=== PATIENT | male | born 1960 | race Caucasian/White ===

== ENCOUNTER 2019-06-29 15:20 | Outpatient (CLI) | payer MEDICARE, SELFPAY ==
--- NOTE | 2019-06-29 15:31 | CT_ITS ---
WS: [id number] CT NECK WITHOUT CONTRAST. HISTORY: MASS OF LEFT SIDE OF NECK TECHNIQUE: Contiguous 5 mm axial images are performed through the neck without intravenous contrast. Sagittal and coronal reformats are also submitted. All CT scans at [facility] use at leas t one of these dose optimization techniques: automated exposure control; mA and/or kV adjustment per patient size (includes targeted exams where dose is matched to clinical indication); or iterative rec onstruction. CONTRAST: CONTRAST: None DLP: 2954.0 mGycm COMPARISON: None available. Nasopharynx, oropharynx, hypopharynx and larynx are unremarkable. No soft tissue masses or abnormal e nhancement. Torus tubarius and fossa of Rosenmuller and parapharyngeal fat are normal. Small bilateral cervical chain lymph nodes. No adenopathy. Thyroid gland and salivary glands are normally enhancing with no masses. No osseous abnormalities. Visualized portions of the skull base demonstrate no abnormalities. Orbits and globes are within norm al limits. No soft tissue masses. Partially calcified extracranial carotid arteries. Partial calcific ation of the aortic arch. Visualized paranasal sinuses and mastoid air cells are normal. Lung apices are clear. CT/CT neck wo con [id number] IMPRESSION: 1. No neck mass or adenopathy. 2. Mild atherosclerosis aortic arch and carotid arteries.
== END 2019-06-29 15:21 | disposition home or self-care (01) ==
PROVIDERS: Family Provider Family Medicine; PCP Family Medicine; Visit Provider Family Medicine
DX: I70.0 Atherosclerosis of aorta (principal); I65.23 Occlusion and stenosis of bilateral carotid arteries; R22.1 Localized swelling, mass and lump, neck
CPT/HCPCS: 70490

== ENCOUNTER → 2019-07-12 10:04 | Outpatient (BNVA) | payer MEDICARE, SELFPAY | PROVIDERS: Family Provider Family Medicine; PCP Family Medicine; Visit Provider Family Medicine | DX: I10 Essential (primary) hypertension (principal); E78.5 Hyperlipidemia, unspecified; E10.65 Type 1 diabetes mellitus with hyperglycemia; R35.1 Nocturia; K21.9 Gastro-esophageal reflux disease without esophagitis | CPT/HCPCS: 80053; 80061; 82044; 83036; 83721; 84153; 85025 ==

== ENCOUNTER → 2019-08-08 13:02 | Outpatient (BNVA) | payer MEDICARE, SELFPAY | PROVIDERS: Family Provider Family Medicine; PCP Family Medicine; Visit Provider Psychiatry & Neurology Psychiatry | DX: F31.89 Other bipolar disorder (principal); F17.219 Nicotine dependence, cigarettes, with unspecified nicotine-induced disorders; F43.12 Post-traumatic stress disorder, chronic | CPT/HCPCS: 99213 ==

== ENCOUNTER → 2019-08-13 10:55 | Outpatient (BNVA) | payer MEDICARE, SELFPAY | PROVIDERS: Family Provider Family Medicine; PCP Family Medicine; Visit Provider Family Medicine | DX: E11.43 Type 2 diabetes mellitus with diabetic autonomic (poly)neuropathy (principal); E78.5 Hyperlipidemia, unspecified | CPT/HCPCS: 80053 ==

== ENCOUNTER 2019-10-30 05:59 | Day surgery (SDC) | payer MEDICARE, SELFPAY ==
[2019-10-26 14:46] VITALS: BMI 26.6
[2019-10-30 06:15] VITALS: BP 145/88; PULSE 84; RESP 18; TEMP 36.5; O2SAT 96
--- NOTE | 2019-10-30 06:34 | ANES.PREANE2 ---
Pre-Anesthetic Assessment Pre-Anesthetic Assessment: Height/Weight: Height 1.7 m Weight 77.111 kg Temp Pulse Resp BP Pulse Ox 97.7 F 84 18 145/88 96 10/30/19 06:15 10/30/19 06:15 10/30/19 06:15 10/30/19 06:15 10/30/19 06:15 Preop Diagnosis: GERD screening Proposed Procedure: Operation Date: 10/30/19 07:05 Proposed Procedures p EGD 93702/23481/Z12.11(Not Applicable) - Ricky Bai MD s Colonoscopy(Not Applicable) - Ricky Bai MD Familial anesthetic complications: None Was Beta Jaxon taken within 24 hours: Yes Last intake: Intake Last Liquid Date 10/29/19 Last Liquid Time 23:50 Last Solid Date 10/28/19 Social: Social History: No alcohol and No tobacco Exam: Pre-Anes Outpt Exam: alert, oriented x 3, clear to auscultation bilaterally and regular rate & rhythm Airway: Cervical ROM: WNL MP: 2 Dentition: Chipped Pulmonary: Pulmonary: None reported CV/HEM: CV/HEM: HTN : : None reported Hepatic: Hepatic: None reported GI: GI: GERD Metabolic: Metabolic: DM (Type I (but other doctors call him type II)) Musc/skel: Musc/skel: None reported Neuropsych: Neuropsych: TIA Anesthetic Plan: ASA status: 2 Anesthesia: MAC Risk of > 500 ml blood loss (7ml/kg in children): No PFSH Anesthesia PFSH: Medical History Benign essential HTN Bipolar 1 disorder, manic, mild Chronic constipation Chronic right-sided low back pain with bilateral sciatica Dyslipidemia GERD (gastroesophageal reflux disease) Post-traumatic stress disorder, chronic PVD (peripheral vascular disease) Uncontrolled type 1 diabetes mellitus with hyperglycemia Surgical History H/O esophagogastroduodenoscopy History of facial surgery History of surgery on arm Status post colonoscopy with polypectomy Family History Other Diabetes Social History Smoking and tobacco status: current every day smoker cigarettes Packs smoked per day: 1.5 Alcohol intake: never Data Anesthesia Cardiac Studies: No Data to Display
[2019-10-30] MEDS: sodium chloride 0.9% 1,000 ML 30 ML IV (06:36)
[2019-10-30 06:53] LABS: Glucose Point of Care 194 mg/dL (70-110)
--- NOTE | 2019-10-30 07:57 | P.HP_ITS ---
Same Day Surgery H&P Indication for Procedure/HPI DATE OF PROCEDURE: October 30, 2019 CHIEF COMPLAINT/INDICATIONFOR SURGICAL PROCEDURE: gerd/screening PREOP DIAGNOSIS: GERD screening PLANNED PROCEDRUE: Operation Date: 10/30/19 07:05 Proposed Procedures p EGD 78883/39312/Z12.11(Not Applicable) - Ricky Bai MD s Colonoscopy(Not Applicable) - Ricky Bai MD Medications/Allergies* Home Medications Medication Instructions Recorded Confirmed Type aspirin 81 mg tablet,delayed 81 mg PO QDAY 07/06/19 10/30/19 History release hydrocodone 10 mg-acetaminophen 1 - 2 tab PO .every 4 to 6 hours 07/06/19 10/30/19 History 325 mg tablet PRN tab insulin lispro 100 unit/mL See Rx Instructions SUBCUT TID 07/06/19 10/26/19 History subcutaneous pen lactulose 10 gram/15 mL oral 15 ml PO QDAY 07/06/19 10/26/19 History solution lancets 33 gauge #100 each 07/06/19 10/26/19 History lisinopril 40 mg tablet 40 mg PO QDAY 07/06/19 10/30/19 History metoprolol succinate 50 mg 50 mg PO QDAY 07/06/19 10/30/19 History tablet,extended release 24 hr pantoprazole 40 mg tablet,delayed 40 mg PO QDAY 07/06/19 10/30/19 History release ropinirole 1 mg tablet 1 mg PO QDAY 07/06/19 10/30/19 History ropinirole 4 mg tablet 4 mg PO QDAY 07/06/19 10/30/19 History zonisamide 100 mg capsule 100 mg PO TID cap 07/06/19 10/30/19 History insulin detemir U-100 100 unit/mL See Rx Instructions SUBCUT 10/16/19 10/30/19 History (3 mL) subcutaneous pen DIRECTED ml Allergies/Adverse Reactions Allergy/AdvReac Type Severity Reaction Status Date / Time gabapentin Allergy Unknown Verified 10/26/19 14:37 varenicline [From Chantix] Allergy ADR-Confusi Verified 10/26/19 14:37 on Current Medications: Generic Name Dose Route Start Last Admin Trade Name Freq PRN Reason Stop Dose Admin Sodium Chloride 1,000 mls @ 30 mls/hr 10/30/19 06:15 10/30/19 06:36 Sodium Chloride 0.9% IV 10/31/19 06:14 30 mls/hr .Q24H MARIANA Administration Pertinent History/Comorbid Conditions* Medical History (Updated 09/14/19 @ 07:30 by Ama Braun DO) Benign essential HTN Bipolar 1 disorder, manic, mild Chronic constipation Chronic right-sided low back pain with bilateral sciatica Dyslipidemia GERD (gastroesophageal reflux disease) Post-traumatic stress disorder, chronic PVD (peripheral vascular disease) Uncontrolled type 1 diabetes mellitus with hyperglycemia Surgical History (Updated 08/20/19 @ 14:48 by Ricky Bai MD) H/O esophagogastroduodenoscopy History of facial surgery History of surgery on arm Status post colonoscopy with polypectomy Family History (Updated 07/06/19 @ 12:39 by Karyn Ayala LPN) Diabetes Social History Smoking and tobacco status: current every day smoker cigarettes Packs smoked per day: 1.5 Alcohol intake: never Pertinent Exam Findings alert, oriented x 3 and regular rate & rhythm Recommendations Surgery/Procedure today Coding Level of Care Code Acute Psychological Operations for Celio Garsia
[2019-10-30 08:30] VITALS: BP 141/61; PULSE 70; RESP 20; TEMP 36.4; O2SAT 99
[2019-10-30 09:00] VITALS: BP 135/73; PULSE 52; RESP 18; TEMP 36.6; O2SAT 96
== END 2019-10-30 09:04 | disposition home or self-care (01) ==
PROVIDERS: PCP Family Medicine; Visit Provider Surgery
PROC: 0DJ08ZZ Inspection of Upper Intestinal Tract, Via Natural or Artificial Opening Endoscopic (ICD-10-PCS; CPT 43235; principal; 2019-10-30 07:00)
PROC: 0DJD8ZZ Inspection of Lower Intestinal Tract, Via Natural or Artificial Opening Endoscopic (ICD-10-PCS; CPT 45378; 2019-10-30 07:00)
DX: Z12.11 Encounter for screening for malignant neoplasm of colon (principal); K21.9 Gastro-esophageal reflux disease without esophagitis; K25.9 Gastric ulcer, unspecified as acute or chronic, without hemorrhage or perforation; D12.2 Benign neoplasm of ascending colon; I10 Essential (primary) hypertension; Z86.73 Personal history of transient ischemic attack (TIA), and cerebral infarction without residual deficits; E78.5 Hyperlipidemia, unspecified; E10.65 Type 1 diabetes mellitus with hyperglycemia; F17.210 Nicotine dependence, cigarettes, uncomplicated
CPT/HCPCS: 12345; 36416; 43239; 45380; 82962; 88305; J2001; J2704; J7030

== ENCOUNTER → 2019-11-12 08:14 | Outpatient (BNVA) | payer MEDICARE, SELFPAY | PROVIDERS: PCP Family Medicine; Visit Provider Psychiatry & Neurology Psychiatry | DX: F43.12 Post-traumatic stress disorder, chronic (principal); F31.89 Other bipolar disorder; F17.219 Nicotine dependence, cigarettes, with unspecified nicotine-induced disorders | CPT/HCPCS: 99213 ==

== ENCOUNTER → 2020-01-01 09:16 | Outpatient (BNVA) | payer MEDICARE, SELFPAY | PROVIDERS: PCP Family Medicine; Visit Provider Family Medicine | DX: M54.41 Lumbago with sciatica, right side (principal); M54.42 Lumbago with sciatica, left side; G89.29 Other chronic pain; I10 Essential (primary) hypertension; E78.5 Hyperlipidemia, unspecified; E10.65 Type 1 diabetes mellitus with hyperglycemia; F17.219 Nicotine dependence, cigarettes, with unspecified nicotine-induced disorders | CPT/HCPCS: 80053; 80061; 82044; 83036; 85025 ==

== ENCOUNTER → 2020-02-07 10:28 | Outpatient (BNVA) | payer MEDICARE, SELFPAY | PROVIDERS: PCP Family Medicine; Visit Provider Family Medicine | DX: E78.5 Hyperlipidemia, unspecified (principal); N28.9 Disorder of kidney and ureter, unspecified | CPT/HCPCS: 80048 ==

== ENCOUNTER → 2020-02-13 08:10 | Outpatient (BNVA) | payer MEDICARE, SELFPAY | PROVIDERS: PCP Family Medicine; Visit Provider Psychiatry & Neurology Psychiatry | DX: F43.12 Post-traumatic stress disorder, chronic (principal); F31.89 Other bipolar disorder; F17.219 Nicotine dependence, cigarettes, with unspecified nicotine-induced disorders; E78.5 Hyperlipidemia, unspecified | CPT/HCPCS: 99213 ==

== ENCOUNTER → 2020-04-01 13:51 | Outpatient (BNVA) | payer MEDICARE, SELFPAY | PROVIDERS: PCP Family Medicine; Visit Provider Family Medicine | DX: L65.9 Nonscarring hair loss, unspecified (principal); E10.65 Type 1 diabetes mellitus with hyperglycemia | CPT/HCPCS: 83036 ==

== ENCOUNTER → 2020-05-14 08:04 | Outpatient (BNVA) | payer MEDICARE, SELFPAY | PROVIDERS: PCP Family Medicine; Visit Provider Psychiatry & Neurology Psychiatry | DX: F31.89 Other bipolar disorder (principal); F43.12 Post-traumatic stress disorder, chronic; F17.219 Nicotine dependence, cigarettes, with unspecified nicotine-induced disorders; E78.5 Hyperlipidemia, unspecified | CPT/HCPCS: 99214 ==

== ENCOUNTER → 2020-06-18 07:57 | Outpatient (BNVA) | payer MEDICARE, SELFPAY | PROVIDERS: PCP Family Medicine; Visit Provider Psychiatry & Neurology Psychiatry | DX: F31.89 Other bipolar disorder (principal); F43.12 Post-traumatic stress disorder, chronic; F17.219 Nicotine dependence, cigarettes, with unspecified nicotine-induced disorders; E78.5 Hyperlipidemia, unspecified | CPT/HCPCS: 99213 ==

== ENCOUNTER → 2020-07-10 13:03 | Outpatient (BNVA) | payer MEDICARE, SELFPAY | PROVIDERS: PCP Family Medicine; Visit Provider Family Medicine | DX: E10.65 Type 1 diabetes mellitus with hyperglycemia (principal); M54.41 Lumbago with sciatica, right side; M54.42 Lumbago with sciatica, left side; G89.29 Other chronic pain; I10 Essential (primary) hypertension; E78.5 Hyperlipidemia, unspecified; E10.621 Type 1 diabetes mellitus with foot ulcer; L97.422 Non-pressure chronic ulcer of left heel and midfoot with fat layer exposed | CPT/HCPCS: 80053; 80061; 81015; 82043; 83036; 85025; 87070; 87075; 87205 ==

== ENCOUNTER 2020-08-25 15:50 | Emergency (ER) | payer MEDICARE, SELFPAY | END 2020-08-25 16:08 | disposition left against medical advice (07) | LOC: ER 15:53 | PROVIDERS: PCP Family Medicine | DX: Z53.21 Procedure and treatment not carried out due to patient leaving prior to being seen by health care provider (principal) | CPT/HCPCS: 87635 ==

== ENCOUNTER 2020-09-10 13:37 | Emergency (ER) | payer MEDICARE, SELFPAY ==
[2020-09-10 13:48] VITALS: BP 69/50; PULSE 109; RESP 16; TEMP 36.6; O2SAT 97; BMI 23.6
--- NOTE | 2020-09-10 14:25 | PC.NURSE ---
Nurse is at bedside.
--- NOTE | 2020-09-10 14:27 | ECG_ITS ---
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 Measurements Intervals [place] Rate: 99 P: 27 [place]: 166 QRS: -30 QRSD: 91 T: 87 QT: 328 QTc: 421 Interpretive Statements SINUS RHYTHM ANTERIOR MYOCARDIAL INFARCTION , OF INDETERMINATE AGE [40+ ms Q WAVE AND/OR ST/T ABNORMALITY IN V3/V4] INFERIOR MYOCARDIAL INFARCTION , OF INDETERMINATE AGE [40+ ms Q WAVE AND/OR ST/T ABNORMALITY IN II/aVF] MODERATE T-WAVE ABNORMALITY, CONSIDER LATERAL ISCHEMIA [-0.1+ mV T WAVE IN I/aVL/V5/V6] Compared to ECG 07/18/2016 11:07:48 Myocardial infarct finding now present T-wave abnormality now present Possible ischemia now present Sinus bradycardia no longer present Electronically Signed On 09-10-2020 19:51:07 CDT by Eris Campbell M.D. [id number]
--- NOTE | 2020-09-10 14:27 | XR_ITS ---
WS: [id number] Portable AP upright chest, 09/10/2020 Clinical Data: reduced breath sounds Comparison: PA and lateral chest, 08/03/2017. Findings: No nodules, masses or effusions are seen. The heart is normal. The pulmonary vascularity is not increased. No pneumonia or pneumothorax is seen. Monitor leads are on the chest wall. There are healed right lateral fourth and fifth rib fractures. XR/XR chest 1V portable [id number] Impression: Negative chest.
[2020-09-10] MEDS: ondansetron 2 mg/ML SDV 2 mL 4 MG IVP (14:44)
[2020-09-10] MEDS: sodium chloride 0.9% 1,000 ML 999 ML IV ×2 (14:45→19:52)
[2020-09-10 14:46] LABS: Basophils % 0.2 %; Eosinophils % 0.1 %; Hematocrit 42.8 % (42.0-52.0); Hemoglobin 14.7 g/dL (11.7-16.6); Lymphocytes # 1.8 10^3/uL (0.8-4.8); Lymphocytes % 11.4 %; Mean Corpuscular HGB Conc 34.3 g/dL (30.0-36.0); Mean Corpuscular Hemoglobin 29.5 pg (28.0-34.0); Mean Corpuscular Volume 85.8 fL (80-94); Monocytes # 1.5 10^3/uL (0.2-0.9); Monocytes % 9.5 %; Neutrophils # 12.56 10^3/uL (1.8-7.7); Neutrophils % 78.4 %; Nucleated Red Blood Cells % 0 %; Platelet Count 442 10^3/cmm (130-400); Red Blood Count 4.99 10^6/uL (4.1-5.3); Red Cell Distribution Width 13.1 % (12.1-15.1)
[2020-09-10 15:05] LABS: Alanine Aminotransferase 18 U/L (0-41); Albumin Level 3.7 g/dL (3.5-5.2); Alkaline Phosphatase 75 IU/L (40-130); Anion Gap 18.9 (5-19); Aspartate Amino Transferase 17 U/L (0-40); Blood Urea Nitrogen 41 mg/dL (8-23); Carbon Dioxide 26 mmol/L (22-29); Chloride 91 mmol/L (98-107); Globulin 3.7 g/dL (1.3-4.6); Glomerular Filtration Rate 32.4 mL/min (90-130); Glucose 212 mg/dL (65-115); Lipase 126 U/L (13-60); Osmolality Calculated 290 mOsm/kg (285-295); Potassium 3.9 mmol/L (3.5-5.1); Sodium 132 mmol/L (136-145); Total Bilirubin 0.3 mg/dL (0.15-1.2); Total Protein 7.4 g/dL (6.6-8.7)
[2020-09-10 15:08] LABS: Troponin(5th) Baseline 42 ng/L (0-15)
[2020-09-10 15:42] LABS: Lactic Sepsis W/Reflex 1.7 mmol/L (0.5-2.2)
[2020-09-10 15:43] VITALS: BP 105/72; PULSE 83; RESP 14; O2SAT 97
--- NOTE | 2020-09-10 15:53 | CT_ITS ---
WS: [id number] CT scan of the abdomen and pelvis without Oral and IV contrast. Additional two-dimensional coronal a nd sagittal reconstruction was performed. 09/10/2020 Clinical Data: abd pain n/v. Elevated creat/lipase elevated. Comparison: CT abdomen and pelvis, 03/07/2017. DLP: 1083.[address] scans at [facility] use at least one of these dose optimization techniques: automat ed exposure control; mA and/or kV adjustment per patient size (includes targeted exams where dose is matched to clinical indication); or iterative reconstruction. Findings: The lower lungs show no nodules, masses or effusions. There is a small hiatal hernia. There are old r ight rib fractures. The liver, gallbladder, spleen, adrenal glands and pancreas are normal. The kidneys have no cysts, masses, hydronephrosis or renal calculi. The abdominal aorta is normal in size with calcification in the wall.. No appendicitis or diverticulitis is seen. The stomach, small bowel and colon are not remarkable. No abscess, adenopathy, ascites, mass, obstruction or free air is seen. The bladder is unremarkable. No inguinal hernia is seen. The bones of the lower thorax, lumbar spine, pelvis, and hips show only minimal osteoarthritic change of the lower thoracic and lumbar vertebral bodies. CT/CT abdomen pelvis wo con [id number] Impression: Negative for acute intra-abdominal or pelvic abnormalities.
--- NOTE | 2020-09-10 16:27 | ECG_ITS ---
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 Measurements Intervals [place] Rate: 74 P: 31 [place]: 164 QRS: -13 QRSD: 100 T: 66 QT: 367 QTc: 408 Interpretive Statements SINUS RHYTHM POSSIBLE ANTERIOR MYOCARDIAL INFARCTION , OF INDETERMINATE AGE [30 ms Q WAVE IN V3/V4, OR R < 0.2 mV IN V4] Compared to ECG 09/10/2020 14:22:10 T-wave abnormality no longer present Possible ischemia no longer present Myocardial infarct finding still present Electronically Signed On 09-10-2020 19:57:09 CDT by Eris Campbell M.D. [id number]
[2020-09-10 17:18] LABS: Add Urine Microscopic? NO
[2020-09-10 17:31] LABS: Bilirubin Urine 1+ (Negative); Blood Urine Neg (Negative); Glucose Urine UA 4+ (Normal); Ketones Urine 1+ (Negative); Leukocyte Esterase Urine Negative (Negative); Nitrate Urine Negative (Negative); Protein Urine Neg (Negative); Specific Gravity, Urine 1.015 (1.005-1.030); Urine Appearance Clear (CLEAR); Urine Color Yellow (Yellow); Urobilinogen Urine Norm (Negative); pH Urine 5 (5-7)
--- NOTE | 2020-09-10 20:07 | ED_ITS ---
HPI - Nausea/Vomiting/Diarrhea General: Chief complaint: Nausea/Vomiting/Diarrhea Stated complaint: N/V SENT OVER BY URGENT CARE Time Seen by Provider: 09/10/20 14:21 History of Present Illness: HPI Narrative: The patient is a 59-year-old male with past medical history hypertension, type 1 diabetes who comes to the ER complaining of nausea and vomiting and diarrhea on and off for the past month with 30 pound weight loss. He says he visited the ER once but the wait was too long and he went home. He has an appointment with his primary care physician September 15 but could not wait. Today he went to urgent care who told him to come to the ER because he was dehydrated and not urinating. MD elicited complaint: nausea, vomiting and diarrhea Description of vomiting: food contents Description of diarrhea: watery Associated nausea: Yes Location of pain: Diffuse Pain consistency: intermittent Severity: moderate Quality: cramping Exacerbating factors: eating Relieving factors: none Associated symtoms: Reports fatigue, anorexia and nausea; Denies anxiety, change in vision, chest pain, dizziness, headache(s) or palpitations Review of Systems General: Reports: 10 or more systems reviewed and unremarkable except in HPI and below Const: Reports: fatigue Eyes: Denies: change in vision, blurry vision or eye redness ENMT: Denies: throat pain, swelling of lips/tongue, ear or mastoid pain or nasal congestion Card: Denies: chest pain, palpitations, irregular heart rhythm, edema, dyspnea on exertion or orthopnea Resp: Denies: dyspnea, productive cough or non-productive cough GI: Reports: nausea, vomiting and diarrhea : Denies: flank pain, urinary frequency or urinary urgency Musc: Denies: neck pain, back pain, extremity pain, joint pain, joint redness, limited range of motion or muscle weakness Skin/Breast: Denies: rash, pruritus, erythema, skin pain or skin tenderness Neuro: Denies: headache(s), numbness in extremities, weakness in extremities, sensory changes, difficulty walking, dizziness, confusion or Slurred speech present Psych: Denies: anxiety or depression Endo: Denies: polyuria All/Imm: Denies: urticaria, throat swelling or tongue swelling PFSH ED PFSH: Medical History (Updated 09/10/20 @ 20:56 by Andrew Akbar MD) Benign essential HTN Bipolar 1 disorder, manic, mild Chronic constipation Chronic right-sided low back pain with bilateral sciatica Dyslipidemia GERD (gastroesophageal reflux disease) Post-traumatic stress disorder, chronic PVD (peripheral vascular disease) Uncontrolled type 1 diabetes mellitus with hyperglycemia Surgical History H/O esophagogastroduodenoscopy (10/30/19) Gastric erosions History of facial surgery History of surgery on arm Status post colonoscopy with polypectomy (10/30/19) Ascending colon polyp, follow-up colonoscopy 5 years Family History Other Diabetes Denies family history of Anesthesia complication Bleeding disorder Social History Smoking and tobacco status: current every day smoker cigarettes Packs smoked per day: 1.5 Alcohol intake: never Household members: spouse Marital status: Current occupational status: disabled History of recent travel: No Physical Exam Const: COMMON NORMALS: no acute distress, average body habitus, patient oriented x3, no limitations, healthy appearing, alert and well nourished GENERAL APPEARANCE: cooperative, comfortable, well kempt and well developed ORIENTATION/CONSCIOUSNESS: Yes awake, Yes oriented to person, Yes oriented to place and Yes oriented to time HENMT: COMMON NORMALS: normocephalic, external ears normal and Normal external nose present HEAD & SCALP: normal to inspection and normocephalic NOSE: Normal external nose present EXTERNAL EAR: Yes external ears normal MOUTH: Normal oral and palatal mucosa present THROAT: posterior oropharynx normal Eye: COMMON NORMALS: Equal, round and reactive pupils present and EOMs intact bilaterally GENERAL EYE: appearance normal, both eyes and all related structures PUPIL: Yes Equal, round and reactive pupils present Neck/C-Spine: COMMON NORMALS: full ROM, no lymphadenopathy, no meningeal signs and no JVD GENERAL: Yes normal visual inspection Lymph: LYMPHATIC: no lymphadenopathy noted Chest: COMMONS NORMALS: normal inspection of the chest and normal palpation of entire chest wall Resp: COMMON NORMALS: normal respiratory effort, No retractions, No use of accessory muscles, clear to auscultation bilaterally and percussion normal EFFORT & INSPECTION: Yes able to speak in complete sentences AUSCULTATION: clear to auscultation bilaterally PERCUSSION: percussion normal Cardio: COMMON NORMALS: no JVD, regular rate, regular rhythm, S1 normal heart sound present, S2 normal heart sound present and Peripheral pulses 2+ throughout RATE: regular rate RHYTHM: regular rhythm HEART SOUNDS: S1 normal heart sound present and S2 normal heart sound present PERIPHERAL PULSES: Peripheral pulses 2+ throughout GI: COMMON NORMALS: Normal to inspection, nondistended, normoactive bowel sounds present, Soft to palpation, non-tender and no masses INSPECTION: Yes normal to inspection PALPATION: Yes Soft to palpation : COMMON NORMALS: Yes no CVA tenderness BLADDER/KIDNEY EXAM: Yes no CVA tenderness Back/Pelvis: COMMON NORMALS: no CVA tenderness, thoracic and lumbar spine normal to inspection, no thoracic nor lumbar tenderness and thoraco-lumbar ROM normal Extremity: COMMON NORMALS: normal to inspection, full ROM, capillary refill normal, no joint enlargement and no pedal edema GENERAL: Yes normal exam except as noted Neuro: COMMON NORMALS: patient oriented x3, CN's II-XII intact bilaterally, moves all extremities, no focal motor deficits, no sensory deficits noted and gait normal SENSORIUM/ORIENTATION: Yes alert, Yes oriented to person, Yes oriented to place and Yes oriented to time MENINGEAL SIGNS: Yes no meningeal signs Psych: COMMON NORMALS: mental status grossly normal, Normal thought process present, cooperative, normal affect and speech normal APPEARANCE: Yes well kempt ATTITUDE: Yes calm SPEECH: Yes normal speech THOUGHT PROCESS: Normal thought process present Skin: COMMON NORMALS: no rashes or lesions noted GENERAL SKIN EXAM: no rashes or lesions noted Course Vital Signs: Vital signs: Vital Signs Temperature 97.8 F 09/10/20 13:48 Pulse Rate 83 09/10/20 15:43 Respiratory Rate 14 09/10/20 15:43 Blood Pressure 105/72 09/10/20 15:43 Pulse Oximetry 97 09/10/20 15:43 MDM - Nausea/Vomiting/Diarrhea MDM Narrative: Medical decision making narrative: The patient came in severely dehydrated, hypotensive after a month of vomiting and diarrhea on and off and a 30 pound weight loss. He was given IV fluids and was able to eat and drink well after some time. His renal function was poor and likely elevated his lipase and troponin. Repeat troponin and repeat creatinine did improve after a liter of fluids. I recommended he stop taking metoprolol and lisinopril and check his blood pressures and bring that diary to his primary care physician early next week as well as have him recheck the blood work specifically his white count, BUN, creatinine, lipase, and troponin. He will return to the ER with worsening symptoms. Lab Data: Labs: Lab Results 09/10/20 09/10/20 09/10/20 Range/Units 14:37 14:37 14:37 WBC 16.0 H (4.0-10.0) 10^3/ uL RBC 4.99 (4.1-5.3) 10^6/u L Hgb 14.7 (11.7-16.6) g/dL Hct 42.8 (42.0-52.0) % MCV 85.8 (80-94) fL MCH 29.5 (28.0-34.0) pg MCHC 34.3 (30.0-36.0) g/dL RDW 13.1 (12.1-15.1) % Plt Count 442 H (130-400) 10^3/c mm MPV 9.0 (7.4-10.4) fL Neut % (Auto) 78.4 % Lymph % (Auto) 11.4 % [place] % (Auto) 9.5 % Eos % (Auto) 0.1 % Baso % (Auto) 0.2 % Neut # (Auto) 12.56 H (1.8-7.7) 10^3/u L Lymph # (Auto) 1.8 (0.8-4.8) 10^3/u L [place] # (Auto) 1.5 H (0.2-0.9) 10^3/u L Eos # (Auto) 0.0 (0.0-0.8) 10^3/u L Baso # (Auto) 0.0 (0.0-0.1) 10^3/u L Nucleated RBC % (a uto) 0 % Nucleated RBCs # 0.0 /100WBC Sodium 132 L (136-145) mmol/L Potassium 3.9 (3.5-5.1) mmol/L Chloride 91 L (98-107) mmol/L Carbon Dioxide 26 (22-29) mmol/L Anion Gap 18.9 (5-19) BUN 41 H (8-23) mg/dL Creatinine 2.1 H (0.7-1.2) mg/dL GFR Calculation 32.4 L (90-130) mL/min Glucose 212 H (65-115) mg/dL Calculated Osmolal ity 290 (285-295) mOsm/k g Lactic Acid (0.5-2.2) mmol/L Calcium 10.0 (8.5-10.5) mg/dL Total Bilirubin 0.3 (0.15-1.2) mg/dL AST 17 (0-40) U/L ALT 18 (0-41) U/L Alkaline Phosphata se 75 (40-130) IU/L Troponin T Baselin e 42 H (0-15) ng/L Troponin T 120 Min [place] (0-15) ng/L Delta Troponin T (0-10) ABS# Total Protein 7.4 (6.6-8.7) g/dL Albumin 3.7 (3.5-5.2) g/dL Globulin 3.7 (1.3-4.6) g/dL Lipase 126 H (13-60) U/L Urine Color (Yellow) Urine Appearance (CLEAR) Urine pH (5-7) Ur Specific Gravit y (1.005-1.030) Urine Protein (Negative) Urine Glucose (UA) (Normal) Urine Ketones (Negative) Urine Blood (Negative) Urine Nitrate (Negative) Urine Bilirubin (Negative) Urine Urobilinogen (Negative) mg/dL Ur Leukocyte Jaclyn ase (Negative) Misc Test Referenc e 09/10/20 09/10/20 09/10/20 Range/Units 15:05 15:30 17:09 WBC (4.0-10.0) 10^3/ uL RBC (4.1-5.3) 10^6/u L Hgb (11.7-16.6) g/dL Hct (42.0-52.0) % MCV (80-94) fL MCH (28.0-34.0) pg MCHC (30.0-36.0) g/dL RDW (12.1-15.1) % Plt Count (130-400) 10^3/c mm MPV (7.4-10.4) fL Neut % (Auto) % Lymph % (Auto) % [place] % (Auto) % Eos % (Auto) % Baso % (Auto) % Neut # (Auto) (1.8-7.7) 10^3/u L Lymph # (Auto) (0.8-4.8) 10^3/u L [place] # (Auto) (0.2-0.9) 10^3/u L Eos # (Auto) (0.0-0.8) 10^3/u L Baso # (Auto) (0.0-0.1) 10^3/u L Nucleated RBC % (a uto) % Nucleated RBCs # /100WBC Sodium (136-145) mmol/L Potassium (3.5-5.1) mmol/L Chloride (98-107) mmol/L Carbon Dioxide (22-29) mmol/L Anion Gap (5-19) BUN (8-23) mg/dL Creatinine (0.7-1.2) mg/dL GFR Calculation (90-130) mL/min Glucose (65-115) mg/dL Calculated Osmolal ity (285-295) mOsm/k g Lactic Acid 1.7 (0.5-2.2) mmol/L Calcium (8.5-10.5) mg/dL Total Bilirubin (0.15-1.2) mg/dL AST (0-40) U/L ALT (0-41) U/L Alkaline Phosphata se (40-130) IU/L Troponin T Baselin e (0-15) ng/L Troponin T 120 Min [place] (0-15) ng/L Delta Troponin T (0-10) ABS# Total Protein (6.6-8.7) g/dL Albumin (3.5-5.2) g/dL Globulin (1.3-4.6) g/dL Lipase (13-60) U/L Urine Color Yellow (Yellow) Urine Appearance Clear (CLEAR) Urine pH 5 (5-7) Ur Specific Gravit y 1.015 (1.005-1.030) Urine Protein Neg (Negative) Urine Glucose (UA) 4+ H (Normal) Urine Ketones 1+ H (Negative) Urine Blood Neg (Negative) Urine Nitrate Negative (Negative) Urine Bilirubin 1+ H (Negative) Urine Urobilinogen Norm (Negative) mg/dL Ur Leukocyte Jaclyn ase Negative (Negative) Misc Test Referenc e Cancelled 09/10/20 09/10/20 Range/Units 18:13 18:13 WBC (4.0-10.0) 10^3/ uL RBC (4.1-5.3) 10^6/u L Hgb (11.7-16.6) g/dL Hct (42.0-52.0) % MCV (80-94) fL MCH (28.0-34.0) pg MCHC (30.0-36.0) g/dL RDW (12.1-15.1) % Plt Count (130-400) 10^3/c mm MPV (7.4-10.4) fL Neut % (Auto) % Lymph % (Auto) % [place] % (Auto) % Eos % (Auto) % Baso % (Auto) % Neut # (Auto) (1.8-7.7) 10^3/u L Lymph # (Auto) (0.8-4.8) 10^3/u L [place] # (Auto) (0.2-0.9) 10^3/u L Eos # (Auto) (0.0-0.8) 10^3/u L Baso # (Auto) (0.0-0.1) 10^3/u L Nucleated RBC % (a uto) % Nucleated RBCs # /100WBC Sodium 132 L (136-145) mmol/L Potassium 4.0 (3.5-5.1) mmol/L Chloride 94 L (98-107) mmol/L Carbon Dioxide 27 (22-29) mmol/L Anion Gap 15.0 (5-19) BUN 40 H (8-23) mg/dL Creatinine 1.9 H (0.7-1.2) mg/dL GFR Calculation 36.3 L (90-130) mL/min Glucose 185 H (65-115) mg/dL Calculated Osmolal ity 289 (285-295) mOsm/k g Lactic Acid (0.5-2.2) mmol/L Calcium 9.5 (8.5-10.5) mg/dL Total Bilirubin (0.15-1.2) mg/dL AST (0-40) U/L ALT (0-41) U/L Alkaline Phosphata se (40-130) IU/L Troponin T Baselin e (0-15) ng/L Troponin T 120 Min [place] 33.90 H (0-15) ng/L Delta Troponin T -8.10 L (0-10) ABS# Total Protein (6.6-8.7) g/dL Albumin (3.5-5.2) g/dL Globulin (1.3-4.6) g/dL Lipase (13-60) U/L Urine Color (Yellow) Urine Appearance (CLEAR) Urine pH (5-7) Ur Specific Gravit y (1.005-1.030) Urine Protein (Negative) Urine Glucose (UA) (Normal) Urine Ketones (Negative) Urine Blood (Negative) Urine Nitrate (Negative) Urine Bilirubin (Negative) Urine Urobilinogen (Negative) mg/dL Ur Leukocyte Jaclyn ase (Negative) Misc Test Referenc e Discharge Plan Discharge Patient Disposition: Home Clinical Impression: Increased nausea and vomiting Condition: Stable Prescriptions: New ondansetron 4 mg tablet,disintegrating 4 mg PO Q8H PRN (Reason: Nausea And Vomiting) 5 Days Qty: 20 RF: 0 Discontinued metoprolol succinate 50 mg tablet extended release 24 hr 50 mg PO DAILY@0830 RF: 0 lisinopril 40 mg tablet 40 mg PO DAILY@0830 RF: 0 No Action meloxicam 15 mg tablet 7.5 mg PO DAILY@0830 RF: 0 lactulose [Constulose] 10 gram/15 mL solution 15 ml PO DAILY@0830 RF: 0 (DME) lancets [Micro Thin Lancets] 33 gauge misc See Rx Instructions .ROUTE .MEDSUPPLY Qty: 100 RF: 0 hydrocodone-acetaminophen 10-325 mg tablet 1 - 2 tab PO .every 4 to 6 hours PRN (Reason: Pain) RF: 0 zonisamide 100 mg capsule 100 mg PO TID RF: 0 aspirin 81 mg tablet,delayed release (DR/EC) 81 mg PO DAILY@0830 RF: 0 ondansetron HCl [Zofran] 4 mg tablet 4 mg PO Q8H PRN (Reason: nausea and vomiting) Qty: 20 RF: 0 (DME) blood sugar diagnostic [Accu-Chek Julia Plus test strp] Strip See Rx Instructions .ROUTE .MEDSUPPLY Qty: 200 RF: 4 metoclopramide HCl 10 mg tablet 10 mg PO Q6H PRN (Reason: nausea) Qty: 120 RF: 2 insulin lispro [Humalog KwikPen Insulin] 100 unit/mL insulin pen See Rx Instructions SUBCUT TID Qty: 3 RF: 0 Levemir FlexTouch U-100 Insuln 100 unit/mL (3 mL) insulin pen See Rx Instructions SUBCUT DIRECTED 90 Days Qty: 45 RF: 0 alprazolam 1 mg tablet 0.5 mg PO BID Qty: 30 RF: 5 atorvastatin 80 mg tablet 80 mg PO DAILY@829 RF: 0 Lamictal 200 mg tablet 200 mg PO DAILY@829 RF: 0 ropinirole 1 mg tablet 1 mg PO DAILY@829 RF: 0 quetiapine 300 mg tablet 300 mg PO DAILY@1999 RF: 0 sertraline 100 mg tablet 100 mg PO DAILY@829 RF: 0 amlodipine 5 mg tablet 5 mg PO DAILY@829 RF: 0 pantoprazole 40 mg tablet,delayed release (DR/EC) 40 mg PO DAILY@829 RF: 0 ropinirole 4 mg tablet 4 mg PO DAILY@1999 RF: 0 Seroquel 50 mg tablet 50 mg PO BEDTIME@1999 RF: 0 Tricor 145 mg tablet 145 mg PO DAILY@829 RF: 0 Stool Softener 1 - 2 tab PO BID RF: 0 vitamin E 1,000 unit PO DAILY@829 RF: 0 Discharge Orders: Discharge ED (Routine); Ordered 09/10/20 Ordered By: Andrew Akbar Referrals: Ama Braun DO [Primary Care Provider] - Discharge Diet: Advance as tolerated Discharge Activity: Resume usual activity Patient Instructions: Acute Nausea and Vomiting (ED), Opioid Safety Activity Restrictions/Additional Instructions: You have been nauseous and vomiting which has made you lose a lot of weight and get severely dehydrated. Please take the Zofran to help you eat and drink if you are feeling nauseous and know that it dissolves in your mouth so you do not have to swallow it for it to take effect. Let it dissolve in your mouth and after 15 minutes start sipping water. Drink lots of fluids to stay hydrated. A lso see your primary care physician in a week to have your creatinine, lipase, and troponin checked as they were all elevated in the ER. After a liter of fluids these did improve however they should still be rechecked as if they do not continue to improve at home the consequences could be bad. I have also asked you to stop taking her metoprolol and lisinopril because your blood pressure was severely low. This is likely compounded by your dehydration and taking blood pressure medicines which will double the effect of your low blood pressure. You may not need these 2 medicines after 30 pounds of weight loss however please check your blood pressure 3 times a day and write them down and bring them to your primary care's office early next week. 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
--- NOTE | 2020-09-10 20:27 | ECG_ITS ---
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 Measurements Intervals [place] Rate: 80 P: 16 OK: 148 QRS: -20 QRSD: 97 T: 61 QT: 362 QTc: 419 Interpretive Statements SINUS RHYTHM POSSIBLE ANTERIOR MYOCARDIAL INFARCTION , OF INDETERMINATE AGE [30 ms Q WAVE IN V3/V4, OR R < 0.2 mV IN V4] Compared to ECG 09/10/2020 17:54:58 No significant changes Electronically Signed On 09-11-2020 17:27:48 CDT by Dasia Montoya M.D. [email or web address]
[2020-09-10 20:28] LABS: Blood Urea Nitrogen 40 mg/dL (8-23); Calcium 9.5 mg/dL (8.5-10.5); Carbon Dioxide 27 mmol/L (22-29); Chloride 94 mmol/L (98-107); Glomerular Filtration Rate 36.3 mL/min (90-130); Glucose 185 mg/dL (65-115); Osmolality Calculated 289 mOsm/kg (285-295); Sodium 132 mmol/L (136-145)
--- NOTE | 2020-09-10 21:11 | PC.NURSE ---
EKG done at 2054 and shown to ER doctor
== END 2020-09-10 21:33 | disposition home or self-care (01) ==
PROVIDERS: Physician Assistant; Emergency Provider Family Medicine; PCP Family Medicine
DX: Z79.82 Long term (current) use of aspirin (principal); Z79.4 Long term (current) use of insulin; I10 Essential (primary) hypertension; E78.5 Hyperlipidemia, unspecified; E10.9 Type 1 diabetes mellitus without complications; F17.210 Nicotine dependence, cigarettes, uncomplicated
CPT/HCPCS: 36415; 71045; 74176; 80048; 80053; 81003; 83605; 83690; 84484; 85025; 93005; 96361; 96374; 99284; J2405; J7030

== ENCOUNTER 2020-09-15 01:48 | Inpatient (IN) | payer MEDICARE, SELFPAY ==
[2020-09-15] VITALS (122 sets, daily range): BP systolic 87–146; BP diastolic 47–81; PULSE 80–120; RESP 1–44; TEMP 35.6–37.3; O2SAT 60–100; BMI 24.5
--- NOTE | 2020-09-15 01:54 | XRR_ITS ---
PROCEDURE INFORMATION: Exam: XR Chest Exam date and time: 09/15/2020 2:05 AM Age: 60 years old Clinical indication: Shortness of breath; Chest pain; Type not specified; Patient HX: Cp, SOB, ? stemi TECHNIQUE: Imaging protocol: XR of the chest Views: 1 view. COMPARISON: CR XR chest 1V portable [id number] 09/10/2020 2:42 PM FINDINGS: Lungs: There are some linear opacities present in the lower hemithoraces bilaterally that likely represents atelectasis. Pleural spaces: Unremarkable. No pleural effusion. No pneumothorax. Heart/Mediastinum: Unremarkable. No cardiomegaly. Bones/joints: Unremarkable. XR/XR chest 1V portable [id number] IMPRESSION: Probable mild bilateral basilar atelectasis.
--- NOTE | 2020-09-15 01:55 | ECG_ITS ---
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 Measurements Intervals [place] Rate: 120 P: 52 SC: 172 QRS: -4 QRSD: 88 T: 74 QT: 293 QTc: 414 Interpretive Statements SINUS TACHYCARDIA POSSIBLE ANTERIOR MYOCARDIAL INFARCTION , OF INDETERMINATE AGE [30 ms Q WAVE IN V3/V4, OR R < 0.2 mV IN V4] Compared to ECG 09/10/2020 20:56:28 Sinus rhythm no longer present Myocardial infarct finding still present Electronically Signed On 09-16-2020 1:11:06 CDT by Eris Campbell M.D. [id number]
[2020-09-15] MEDS: sodium chloride 0.9% 1,000 ML 999 ML IV ×2 (02:00→02:19)
--- NOTE | 2020-09-15 02:00 | PC.NURSE ---
glucose 547 fingerstick
[2020-09-15 02:24] LABS: Basophils # 0.2 10^3/uL (0.0-0.1); Basophils % 1.5 %; Hematocrit 49.4 % (42.0-52.0); Hemoglobin 14.2 g/dL (11.7-16.6); Ketone (Acetest) Serum Positive (Negative); Lymphocytes % 17.4 %; Mean Corpuscular HGB Conc 28.7 g/dL (30.0-36.0); Mean Corpuscular Hemoglobin 28.4 pg (28.0-34.0); Mean Corpuscular Volume 98.8 fL (80-94); Mean Platelet Volume 9.7 fL (7.4-10.4); Monocytes # 0.7 10^3/uL (0.2-0.9); Monocytes % 6.2 %; Neutrophils # 8.33 10^3/uL (1.8-7.7); Neutrophils % 72.7 %; Nucleated Red Blood Cells % 0 %; Platelet Count 500 10^3/cmm (130-400); Red Cell Distribution Width 12.8 % (12.1-15.1); White Blood Count 11.5 10^3/uL (4.0-10.0)
[2020-09-15 02:25] LABS: Troponin(5th) Baseline 33 ng/L (0-15)
[2020-09-15 02:30] LABS: INR 1.12 (0.8-1.2)
[2020-09-15 02:31] LABS: Partial Thromboplastin Time 28.7 SECONDS (23.9-36.7)
[2020-09-15 02:34] LABS: Alanine Aminotransferase 29 U/L (0-41); Albumin Level 3.9 g/dL (3.5-5.2); Alkaline Phosphatase 79 IU/L (40-130); Anion Gap 43.5 (5-19); Aspartate Amino Transferase 21 U/L (0-40); Blood Urea Nitrogen 33 mg/dL (8-23); Calcium 10.8 mg/dL (8.5-10.5); Chloride 85 mmol/L (98-107); D Dimer 1.45 ug/mIFEU (0-0.59); Globulin 3.5 g/dL (1.3-4.6); Glomerular Filtration Rate 44.2 mL/min (90-130); NT Pro B Type Natriuretic Pept 1278 pg/mL (0-125); Osmolality Calculated 301 mOsm/kg (285-295); Potassium 5.5 mmol/L (3.5-5.1); Sodium 128 mmol/L (136-145); Total Bilirubin 0.2 mg/dL (0.15-1.2); Total Protein 7.4 g/dL (6.6-8.7)
[2020-09-15 02:36] LABS: Carbon Dioxide 5 mmol/L (22-29)
[2020-09-15 02:37] LABS: Glucose 600 mg/dL (65-115)
[2020-09-15] MEDS: insulin regular-human 250 UNIT in sodium chloride 0.9% 250 ML IV (03:09)
[2020-09-15 03:11] LABS: Arterial Blood Gas Hematocrit 35.4 % (42-52); Base Excess ABG -25.9 mmol/L (-2.0-2.0); Blood Gas Allen Test Pos; Blood Gas Sample Site Radial, right; Blood Gas Sample Type Arterial; HCO3 ABG 2.9 mmol/L (22-26); Oxygen Device NC
[2020-09-15 03:12] LABS: ABG PCO2 11.1 mmHg (35-45); ABG PH Result 7.03 (7.35-7.45)
[2020-09-15] MEDS: sodium bicarbonate 150 MEQ in dextrose 5% 1,000 ML 100 MEQ IV (03:39)
[2020-09-15 03:46] LABS: Glucose Point of Care 561 mg/dL (70-110)
[2020-09-15] MEDS: fentaNYL 50 mcg/mL INJ 2mL 100 MCG IVP (03:56)
--- NOTE | 2020-09-15 03:58 | PM.HP ---
Providers/Chief Complaint Primary Care Provider: Ama Braun DO Chief Complaint: CP History of Present Illness Aakash Kelley is a 60 year old male who presented today with chief complaint of worsening abdominal pain recurrent nausea and vomiting. Patient is a type I diabetic, he stating that because of his recurrent nausea and vomiting he has missed his insulin dosages in last 1 month, he started experiencing multiple bouts of emesis 3 to 4 weeks ago, he is denying fever, any inciting event before that, no loose stools, no chest pain, shortness of breath, dysuria. He denies alcohol use. Diagnosis in the ER revealed DKA, hypertension, he was started on insulin, and bicarb secondary to severe acidosis, ABG shows compensated metabolic acidosis, CT abdomen pelvis did not show any acute pathology, lipase unremarkable, troponin with negative delta, mild leukocytosis, hemoconcentration, acute on chronic kidney disease, hyperkalemia pseudohyponatremia, triglyceride 460, lipase 32, EKG showing sinus tachycardia. Of note, patient does take metoclopramide for recurrent nausea and vomiting, diabetic gastroparesis has not been diagnosed yet Review of Systems Const: Reports: chills, body aches and fatigue; Denies: fever(s) Eyes: Denies: change in vision ENMT: Denies: throat pain Card: Denies: chest pain Resp: Denies: dyspnea GI: Reports: abdominal pain, nausea and vomiting : Denies: flank pain Musc: Denies: neck pain Skin/Breast: Denies: rash Neuro: Denies: headache(s) Psych: Denies: anxiety Endo: Denies: polyuria Mikie/Lymph: Denies: easy bruising All/Imm: Denies: urticaria Medications/Allergies Home Medications Medication Instructions Recorded Confirmed Last Taken Type aspirin 81 mg tablet,delayed 81 mg PO DAILY@0830 07/06/19 09/10/20 09/10/20 History release hydrocodone 10 mg-acetaminophen 1 - 2 tab PO .every 4 to 6 hours 07/06/19 09/10/20 09/10/20 History 325 mg tablet PRN tab lactulose 10 gram/15 mL oral 15 ml PO DAILY@0830 07/06/19 09/10/20 09/10/20 History solution lancets 33 gauge #100 each 07/06/19 09/10/20 Unknown History zonisamide 100 mg capsule 100 mg PO TID cap 07/06/19 09/10/20 10/29/19 20:00 History ondansetron HCl 4 mg tablet 4 mg PO Q8H PRN #20 tab 11/08/19 09/10/20 09/10/20 Rx blood sugar diagnostic #200 each 12/06/19 09/10/20 Unknown Rx metoclopramide HCl 10 mg tablet 10 mg PO Q6H PRN #120 tab 02/06/20 09/10/20 09/10/20 Rx insulin lispro 100 unit/mL See Rx Instructions SUBCUT TID #3 04/29/20 09/10/20 09/09/20 Rx subcutaneous pen ml insulin detemir U-100 100 unit/mL See Rx Instructions SUBCUT 07/01/20 09/10/20 09/10/20 Rx (3 mL) subcutaneous pen DIRECTED 90 Days #45 ml meloxicam 15 mg tablet 7.5 mg PO DAILY@0830 tab 07/10/20 09/10/20 09/10/20 History alprazolam 1 mg tablet 0.5 mg PO BID #30 tab 08/18/20 09/10/20 09/10/20 Rx Lamictal 200 mg PO DAILY@82909/10/20 09/10/20 09/10/20 History Seroquel 50 mg PO BEDTIME@199909/10/20 09/10/20 09/09/20 History Stool Softener 1 - 2 tab PO BID 09/10/20 09/10/20 09/10/20 History Tricor 145 mg PO DAILY@82909/10/20 09/10/20 09/10/20 History amlodipine 5 mg PO DAILY@82909/10/20 09/10/20 09/10/20 History atorvastatin 80 mg PO DAILY@82909/10/20 09/10/20 09/10/20 History pantoprazole 40 mg PO DAILY@82909/10/20 09/10/20 09/10/20 History quetiapine 300 mg PO DAILY@199909/10/20 09/10/20 09/09/20 History ropinirole 1 mg PO DAILY@82909/10/20 09/10/20 09/10/20 History ropinirole 4 mg PO DAILY@199909/10/20 09/10/20 09/09/20 History sertraline 100 mg PO DAILY@82909/10/20 09/10/20 09/10/20 History vitamin E 1,000 unit PO DAILY@82909/10/20 09/10/20 09/10/20 History Allergies Allergy/AdvReac Type Severity Reaction Status Date / Time gabapentin Allergy Unknown Verified 09/10/20 13:04 varenicline [From Chantix] Allergy ADR-Confusi Verified 09/10/20 13:04 on PFSH Acute PFSH: Medical History Benign essential HTN Bipolar 1 disorder, manic, mild Chronic constipation Chronic nausea 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 Dyslipidemia GERD (gastroesophageal reflux disease) Hair loss Nicotine dependence, cigarettes, with unspecified nicotine-induced disorders Other bipolar disorder Post-traumatic stress disorder, chronic PVD (peripheral vascular disease) Uncontrolled type 1 diabetes mellitus with hyperglycemia Surgical History H/O esophagogastroduodenoscopy (10/30/19) Gastric erosions History of facial surgery History of surgery on arm Status post colonoscopy with polypectomy (10/30/19) Ascending colon polyp, follow-up colonoscopy 5 years Family History Other Diabetes Denies family history of Anesthesia complication Bleeding disorder Social History Smoking and tobacco status: current every day smoker cigarettes Packs smoked per day: 1.5 Alcohol intake: never Household members: spouse Marital status: Current occupational status: disabled History of recent travel: No Vitals/I&O/Wt Last Vital Signs Temp 96.4 F L 09/15/20 01:50 Pulse 113 H 09/15/20 03:46 Resp 18 09/15/20 03:56 BP 105/65 09/15/20 03:46 Pulse Ox 97 09/15/20 03:56 09/14/20 09/14/20 09/15/20 14:59 22:59 06:59 Intake Total 867 / 2000.867 Balance / Weight last 48 hrs Weight 71.214 kg Physical Exam Narrative: EXAM NARRATIVE: Middle-age male Who was laying supine in distress, he has signs of hyperventilation due to metabolic acidosis Awake alert oriented x3 GCS 15 S1, S2 sinus tachycardia clinically dehydrated Abdomen tender on deep palpation otherwise bowel sound present Low symmetry no edema gangrene ulcer No lower extremity vascular compromise No edema gangrene or ulcer of lower extremities Distressed because of abdominal discomfort No neurological deficits Data : 09/15/20 01:57 09/15/20 01:57 A&P Assessment and plan (1) Diabetic keto-acidosis: Status: Acute Qualifiers: Diabetes mellitus complication detail: without coma Diabetes mellitus type: type 1 Qualified Code(s): E10.10 - Type 1 diabetes mellitus with ketoacidosis without coma (2) Chronic right-sided low back pain with bilateral sciatica: Status: Chronic Additional A&P Information DKA This seems secondary to dehydration probably due to diabetic gastroparesis, he missed multiple insulin doses as well in last 1 month I do not see any active source of infection CT abdomen pelvis unremarkable, no signs of pancreatitis, troponin unremarkable, will obtain UA, chest x-ray is unremarkable no signs of consolidation, troponin with negative delta, EKG is sinus tachycardia, no active chest pain, will check drug screen level Start DKA protocol Severe metabolic acidosis due to DKA We will add bicarb drip with D5 I would avoid using bicarb with normal saline to avoid hypertonicity High anion gap acidosis due to lactic acidemia with respiratory compensation with tachypnea, if he stays tachypneic can use BiPAP to decrease work of breathing Hyperkalemia with RAEGAN Baseline creatinine seems to be normal Anticipating improvement of hyperkalemia with insulin Most likely cause of RAEGAN is DKA, will obtain UA and drug screen Clinically he is dehydrated anticipating improvement with fluid resuscitation Sinus tachycardia High D-dimer, currently saturating well on room air I do believe the symptoms are secondary to dehydration and high D-dimer is due to inflammatory response of acidosis due to DKA however PE has not been ruled out I will give him first dose of Lovenox now, will obtain VQ scan, cannot get CTA because of high creatinine and recently he got contrast with CT abdomen pelvis Bipolar disorder: Continue p.o. medications once DKA improved Full code N.p.o. DVT prophylaxis will receive therapeutic dose of Lovenox x1 now, requesting VQ scan for the anticoagulation to be decided afterwards Attestations Medical Necessity Statement*: Anticipating stay in the hospital cross more than 2 midnights for management of DKA currently requiring ICU management for severe acidosis, RAEGAN Time Spent in Patient Care: (>than 50% of time spent in counselling and/or direct pt care on unit). 40mins Coding Level of Care Code Acute Software Engineer Sales for g Fwd Diagnoses Diabetic keto-acidosis E10.10 Diabetes mellitus complication detail: without coma Diabetes mellitus type: type 1 Chronic right-sided low back pain with bilateral sciatica M54.41; M54.42; G89.29
--- NOTE | 2020-09-15 04:05 | PC.NURSE ---
Pt calling staff names and is being verbally abusive to . has become upset and left at this time.
--- NOTE | 2020-09-15 04:13 | ED_ITS ---
HPI - Chest Pain General: Chief Complaint: Chest Pain Stated Complaint: CP Time Seen by Provider: 09/15/20 01:54 History of Present Illness: HPI narrative: 60-year-old male insulin-dependent diabetic. He presents in significant distress with chest and mid back pain, some shortness of breath, vomiting, and some mild mental status changes. He was brought in as a STEMI alert, which was canceled because ST elevation was not seen on his EKG on arrival. He denies any fever. The patient is a poor historian. MD complaint: chest pain Pertinent past history: other Onset (ago): hour(s) Timing of current episode: constant and increasing Prior episodes: No Onset: during rest Pain location: substernal and epigastric Pain radiation: back Quality: aching and heaviness Relieving factors: nothing Exacerbating factors: nothing Associated symptoms: Reports dyspnea, nausea, palpitations and vomiting; Deny fever(s) or leg edema Treatment prior to arrival: aspirin Review of Systems Const: Denies: fever(s) Eyes: Denies: change in vision ENMT: Denies: odynophagia or sinus pain Card: Reports: chest pain and palpitations; Denies: irregular heart rhythm or edema Resp: Reports: dyspnea GI: Reports: nausea and vomiting : Reports: difficulty urinating and hematuria; Denies: dysuria Musc: Reports: back pain; Denies: neck pain Skin/Breast: Denies: rash Neuro: Reports: dizziness and confusion; Denies: headache(s) or vertigo Psych: Denies: anxiety PFS ED PFSH: Medical History (Updated 09/15/20 @ 04:25 by Barak Rm DO) Benign essential HTN Bipolar 1 disorder, manic, mild Chronic constipation Chronic right-sided low back pain with bilateral sciatica Dyslipidemia GERD (gastroesophageal reflux disease) Post-traumatic stress disorder, chronic PVD (peripheral vascular disease) Uncontrolled type 1 diabetes mellitus with hyperglycemia Surgical History H/O esophagogastroduodenoscopy (10/30/19) Gastric erosions History of facial surgery History of surgery on arm Status post colonoscopy with polypectomy (10/30/19) Ascending colon polyp, follow-up colonoscopy 5 years Family History Other Diabetes Denies family history of Anesthesia complication Bleeding disorder Social History Smoking and tobacco status: current every day smoker cigarettes Packs smoked per day: 1.5 Alcohol intake: never Household members: spouse Marital status: Current occupational status: disabled History of recent travel: No Physical Exam Const: GENERAL APPEARANCE: in distress, ill appearing, frail appearing and diaphoretic ORIENTATION/CONSCIOUSNESS: Yes oriented to person and Yes oriented to place; not oriented to time HENMT: COMMON NORMALS: normocephalic, external ears normal and Normal external nose present HEAD & SCALP: normocephalic FACE & SINUS: normal facial exam NOSE: Normal external nose present and No nasal discharge present EXTERNAL EAR: Yes external ears normal Eye: COMMON NORMALS: Equal, round and reactive pupils present and EOMs intact bilaterally PUPIL: Yes Equal, round and reactive pupils present Neck/C-Spine: GENERAL: No tracheal deviation Chest: COMMONS NORMALS: normal inspection of the chest CHEST: No tenderness Resp: COMMON NORMALS: clear to auscultation bilaterally EFFORT & INSPECTION: No tachypneic, No respiratory distress, No retractions, No uses accessory muscles and No tracheal deviation AUSCULTATION: clear to auscultation bilaterally, no rhonchi, no wheezes and lung sounds not diminished Cardio: COMMON NORMALS: regular rate and regular rhythm RATE: regular rate RHYTHM: regular rhythm PERIPHERAL PULSES: radial pulses present GI: INSPECTION: No abdominal distension AUSCULTATION: No Hyperactive bowel sounds present and No Hypoactive bowel sounds present PALPATION: No Guarding due to palpation present (GI) and No Rigid due to palpation PERCUSSION: no dullness to percussion and no tympanic to percussion Neuro: SENSORIUM/ORIENTATION: Yes oriented to person, Yes oriented to place and No oriented to time Psych: APPEARANCE: Yes disheveled ATTITUDE: Yes bizarre and Yes uncooperative ACTIVITY/MOTOR BEHAVIOR: Yes appropriate eye contact and Yes fidgeting SPEECH: Yes minimal MOOD & AFFECT: Yes depressed mood Skin: COMMON NORMALS: no rashes or lesions noted GENERAL SKIN EXAM: no rashes or lesions noted Course Vital Signs: Vital signs: Vital Signs Temperature 96.4 F L 09/15/20 01:50 Pulse Rate 110 H 09/15/20 04:03 Respiratory Rate 16 09/15/20 04:03 Blood Pressure 100/60 09/15/20 04:03 Pulse Oximetry 98 09/15/20 04:03 MDM - Chest Pain MDM Narrative: Medical decision making narrative: 60-year-old male type I diabetic for whom a STEMI alert was called in the field. It was canceled in consultation with cost control analyst when he arrived, and there was no true ST elevation on his EKG however, his glucose was found to be in the 500s. His bicarbonate level is 5. His potassium is 5.5 BUN is 33 and creatinine 1.6. It appears that his bicarbonate level was 26 a few days ago. His pH is significantly low at 7.0, with serum ketones he is received 2 L so far. He is on insulin drip. He will go to the ICU for treatment and close monitoring. Lab Data: Labs: Lab Results 09/15/20 09/15/20 09/15/20 Range/Units 01:57 01:57 01:57 WBC 11.5 H (4.0-10.0) 10^3/ uL RBC 5.00 (4.1-5.3) 10^6/u L Hgb 14.2 (11.7-16.6) g/dL Hct 49.4 (42.0-52.0) % MCV 98.8 H (80-94) fL MCH 28.4 (28.0-34.0) pg MCHC 28.7 L (30.0-36.0) g/dL RDW 12.8 (12.1-15.1) % Plt Count 500 H (130-400) 10^3/c mm MPV 9.7 (7.4-10.4) fL Neut % (Auto) 72.7 % Lymph % (Auto) 17.4 % [place] % (Auto) 6.2 % Eos % (Auto) 0.0 % Baso % (Auto) 1.5 % Neut # (Auto) 8.33 H (1.8-7.7) 10^3/u L Lymph # (Auto) 2.0 (0.8-4.8) 10^3/u L [place] # (Auto) 0.7 (0.2-0.9) 10^3/u L Eos # (Auto) 0.0 (0.0-0.8) 10^3/u L Baso # (Auto) 0.2 H (0.0-0.1) 10^3/u L Nucleated RBC % (a uto) 0 % Nucleated RBCs # 0.0 /100WBC PT 14.70 (12.1-14.9) SECO NDS INR 1.12 (0.8-1.2) APTT 28.7 (23.9-36.7) SECO NDS D-Dimer 1.45 H (0-0.59) ug/mIFE U Specimen Type Sample Site ABG pH (7.35-7.45) ABG pCO2 (35-45) mmHg ABG pO2 (80.0-100.0) mmH g ABG HCO3 (22-26) mmol/L ABG Base Excess (-2.0-2.0) mmol/ L Jarvis Test Hematocrit (42-52) % O2 Delivery Device O2 Liters/Min % FiO2 % Utility Sales And Service Manager ID Sodium 128 L (136-145) mmol/L Potassium 5.5 H (3.5-5.1) mmol/L Chloride 85 L (98-107) mmol/L Carbon Dioxide 5 L* (22-29) mmol/L Anion Gap 43.5 H (5-19) BUN 33 H (8-23) mg/dL Creatinine 1.6 H (0.7-1.2) mg/dL GFR Calculation 44.2 L (90-130) mL/min Glucose 600 H* (65-115) mg/dL POC Glucose (70-110) mg/dL Calculated Osmolal ity 301 H (285-295) mOsm/k g Lactate (0.5-2.2) mmol/L Calcium 10.8 H (8.5-10.5) mg/dL Total Bilirubin 0.2 (0.15-1.2) mg/dL AST 21 (0-40) U/L ALT 29 (0-41) U/L Alkaline Phosphata se 79 (40-130) IU/L Troponin T Baselin e (0-15) ng/L NT-Pro-B Natriuret Pep 1278 H (0-125) pg/mL Total Protein 7.4 (6.6-8.7) g/dL Albumin 3.9 (3.5-5.2) g/dL Globulin 3.5 (1.3-4.6) g/dL Serum Ketones (Negative) 09/15/20 09/15/20 09/15/20 Range/Units 01:57 01:57 01:57 WBC (4.0-10.0) 10^3/ uL RBC (4.1-5.3) 10^6/u L Hgb (11.7-16.6) g/dL Hct (42.0-52.0) % MCV (80-94) fL MCH (28.0-34.0) pg MCHC (30.0-36.0) g/dL RDW (12.1-15.1) % Plt Count (130-400) 10^3/c mm MPV (7.4-10.4) fL Neut % (Auto) % Lymph % (Auto) % [place] % (Auto) % Eos % (Auto) % Baso % (Auto) % Neut # (Auto) (1.8-7.7) 10^3/u L Lymph # (Auto) (0.8-4.8) 10^3/u L [place] # (Auto) (0.2-0.9) 10^3/u L Eos # (Auto) (0.0-0.8) 10^3/u L Baso # (Auto) (0.0-0.1) 10^3/u L Nucleated RBC % (a uto) % Nucleated RBCs # /100WBC PT (12.1-14.9) SECO NDS INR (0.8-1.2) APTT (23.9-36.7) SECO NDS D-Dimer (0-0.59) ug/mIFE U Specimen Type Sample Site ABG pH (7.35-7.45) ABG pCO2 (35-45) mmHg ABG pO2 (80.0-100.0) mmH g ABG HCO3 (22-26) mmol/L ABG Base Excess (-2.0-2.0) mmol/ L Jarvis Test Hematocrit (42-52) % O2 Delivery Device O2 Liters/Min % FiO2 % Utility Sales And Service Manager ID Sodium (136-145) mmol/L Potassium (3.5-5.1) mmol/L Chloride (98-107) mmol/L Carbon Dioxide (22-29) mmol/L Anion Gap (5-19) BUN (8-23) mg/dL Creatinine (0.7-1.2) mg/dL GFR Calculation (90-130) mL/min Glucose (65-115) mg/dL POC Glucose (70-110) mg/dL Calculated Osmolal ity (285-295) mOsm/k g Lactate 5.0 H* (0.5-2.2) mmol/L Calcium (8.5-10.5) mg/dL Total Bilirubin (0.15-1.2) mg/dL AST (0-40) U/L ALT (0-41) U/L Alkaline Phosphata se (40-130) IU/L Troponin T Baselin e 33 H (0-15) ng/L NT-Pro-B Natriuret Pep (0-125) pg/mL Total Protein (6.6-8.7) g/dL Albumin (3.5-5.2) g/dL Globulin (1.3-4.6) g/dL Serum Ketones Positive H (Negative) 09/15/20 09/15/20 Range/Units 03:00 03:43 WBC (4.0-10.0) 10^3/ uL RBC (4.1-5.3) 10^6/u L Hgb (11.7-16.6) g/dL Hct (42.0-52.0) % MCV (80-94) fL MCH (28.0-34.0) pg MCHC (30.0-36.0) g/dL RDW (12.1-15.1) % Plt Count (130-400) 10^3/c mm MPV (7.4-10.4) fL Neut % (Auto) % Lymph % (Auto) % [place] % (Auto) % Eos % (Auto) % Baso % (Auto) % Neut # (Auto) (1.8-7.7) 10^3/u L Lymph # (Auto) (0.8-4.8) 10^3/u L [place] # (Auto) (0.2-0.9) 10^3/u L Eos # (Auto) (0.0-0.8) 10^3/u L Baso # (Auto) (0.0-0.1) 10^3/u L Nucleated RBC % (a uto) % Nucleated RBCs # /100WBC PT (12.1-14.9) SECO NDS INR (0.8-1.2) APTT (23.9-36.7) SECO NDS D-Dimer (0-0.59) ug/mIFE U Specimen Type Arterial Sample Site Radial, right ABG pH 7.03 L* (7.35-7.45) ABG pCO2 11.1 L* (35-45) mmHg ABG pO2 161.0 H (80.0-100.0) mmH g ABG HCO3 2.9 L (22-26) mmol/L ABG Base Excess -25.9 L (-2.0-2.0) mmol/ L Jarvis Test Pos Hematocrit 35.4 L (42-52) % O2 Delivery Device Nc O2 Liters/Min 2.0 % FiO2 28.0 % Utility Sales And Service Manager ID [id number] Sodium (136-145) mmol/L Potassium (3.5-5.1) mmol/L Chloride (98-107) mmol/L Carbon Dioxide (22-29) mmol/L Anion Gap (5-19) BUN (8-23) mg/dL Creatinine (0.7-1.2) mg/dL GFR Calculation (90-130) mL/min Glucose (65-115) mg/dL POC Glucose 561 H* (70-110) mg/dL Calculated Osmolal ity (285-295) mOsm/k g Lactate (0.5-2.2) mmol/L Calcium (8.5-10.5) mg/dL Total Bilirubin (0.15-1.2) mg/dL AST (0-40) U/L ALT (0-41) U/L Alkaline Phosphata se (40-130) IU/L Troponin T Baselin e (0-15) ng/L NT-Pro-B Natriuret Pep (0-125) pg/mL Total Protein (6.6-8.7) g/dL Albumin (3.5-5.2) g/dL Globulin (1.3-4.6) g/dL Serum Ketones (Negative) Critical Care Time Critical Care Time: Critical Care Time: Yes Total Critical Care Time: 45 Attestation: This case had a high probability of a clinically significant, sudden, or life threatening deterioration of this patient's condition which required my full and direct attention, intervention and personal management. Discharge Plan Discharge Patient Disposition: Admitted As Inpatient Admit Provider: Hortensia Dee Clinical Impression: Diabetic keto-acidosis Qualifiers: Diabetes mellitus type: type 1 Diabetes mellitus complication detail: without coma Qualified Code(s): E10.10 - Type 1 diabetes mellitus with ketoacidosis w ithout coma Condition: Critical Coding Level of Care Code ED Surgical Assist for Celio Garsia
--- NOTE | 2020-09-15 04:22 | PC.NURSE ---
attempted to call report was told they would call back in a bit.
[2020-09-15 04:23] LABS: Glucose Point of Care 533 mg/dL (70-110)
--- NOTE | 2020-09-15 04:37 | CTR_ITS ---
PROCEDURE INFORMATION: Exam: CT Abdomen And Pelvis With Contrast Exam date and time: 09/15/2020 4:49 AM Age: 60 years old Clinical indication: Abdominal pain; Patient HX: C/O chest/back/epigastric pain; Additional info: Abdominal/back pain - fletcher TECHNIQUE: Imaging protocol: Computed tomography of the abdomen and pelvis with contrast. Radiation optimization: All CT scans at this facility use at least one of these dose optimization techniques: automated exposure control; mA and/or kV adjustment per patient size (includes targeted exams where dose is matched to clinical indication); or iterative reconstruction. Contrast material: VISI 320; Contrast volume: 95 ml; Contrast route: INTRAVENOUS (IV); COMPARISON: CT abdomen pelvis wo con [id number] 09/10/2020 5:01 PM RADIATION DOSE METRICS: Total DLP (mGy-cm): 1342.77 FINDINGS: Liver: Normal. No mass. Gallbladder and bile ducts: Normal. No calcified stones. No ductal dilation. Pancreas: Normal. No ductal dilation. Spleen: Calcifications are seen within the spleen compatible with calcified granulomas. Adrenal glands: Normal. No mass. Kidneys and ureters: Normal. No hydronephrosis. Stomach and bowel: The stomach appears distended with fluid and particulate food. Appendix: No evidence of appendicitis. Intraperitoneal space: Unremarkable. No free air. No significant fluid collection. Vasculature: Calcifications are seen within the thoracic and abdominal aorta, iliac arteries and femoral arteries bilaterally. Lymph nodes: Unremarkable. No enlarged lymph nodes. Urinary bladder: The bladder appears distended. Reproductive: Unremarkable as visualized. Bones/joints: Unremarkable. No acute fracture. Soft tissues: Unremarkable. CT/CT abdomen pelvis w con* [id number] IMPRESSION: There are no acute abdominal findings. Radiation Dose CTDIVOL = (mGy): DLP = 1342.77 (mGy-cm)
[2020-09-15 04:43] LABS: Troponin 5 2HR 31.35 ng/L (0-15); Troponin 5 2HR Delta -1.65 ABS# (0-10)
[2020-09-15] MEDS: iodixanol 320 mg/mL 100mL Btl IV (05:08)
[2020-09-15 05:21] LABS: Lipase 32 U/L (13-60); Triglycerides 460 mg/dL (0-150)
[2020-09-15 05:43] LABS: LDL Cholesterol Direct 102 mg/dL (0-100)
--- NOTE | 2020-09-15 06:03 | NM_ITS ---
WS: [id number] NUCLEAR MEDICINE LUNG VENTILATION AND PERFUSION CLINICAL INFORMATION: Tachypnea and sinus tachycardia TECHNIQUE: Ventilation/perfusion lung scan with 32.7 mCi technetium 99m DTPA. 5.4 mCi technetium 99m MAA COMPARISON: None. FINDINGS: Normal symmetric pulmonary perfusion bilaterally. Normal ventilatory images. No mismatched ventilatio n/perfusion defects to suggest pulmonary embolus. NM/NM pul vent and perfus* [id number] IMPRESSION: 1. Low probability for pulmonary embolus.
--- NOTE | 2020-09-15 06:25 | PC.NURSE ---
Notified hospitalist for DKA titration protocol. New order to keep blood glucose levels between 40 and 80. If less than 40 decrease insulin gtt by 0.01. If greater than 80 to increase insulin gtt by 0.01.
[2020-09-15 06:49] LABS: Estmated Average Glucose 275; Hemoglobin A1C 11.2 % (4.0-6.0)
[2020-09-15] MEDS: insulin regular-human 250 UNIT in sodium chloride 0.9% 250 ML 15 UNIT IV (07:15)
[2020-09-15] MEDS: enoxaparin 80 mg/0.8 mL Syringe 70 MG SUBCUT (07:19)
[2020-09-15] MEDS: sodium chloride 0.9% 1,000 ML 100 ML IV (07:20)
[2020-09-15] MEDS: heparin 5,000 unit/mL INJ 1 mL 5000 UNIT SUBCUT (07:21)
[2020-09-15 09:52] LABS: Anion Gap 24.9 (5-19); Blood Urea Nitrogen 31 mg/dL (8-23); Calcium 9.4 mg/dL (8.5-10.5); Carbon Dioxide 15 mmol/L (22-29); Chloride 90 mmol/L (98-107); Glomerular Filtration Rate 61.6 mL/min (90-130); Glucose 297 mg/dL (65-115); Osmolality Calculated 278 mOsm/kg (285-295); Potassium 4.9 mmol/L (3.5-5.1); Sodium 125 mmol/L (136-145)
[2020-09-15 10:33] LABS: Glucose Point of Care 251 mg/dL (70-110)
[2020-09-15 11:20] LABS: Glucose Point of Care 533 mg/dL (70-110)
[2020-09-15 11:20] LABS: Glucose Point of Care 356 mg/dL (70-110)
[2020-09-15 11:20] LABS: Glucose Point of Care 305 mg/dL (70-110)
[2020-09-15 11:33] LABS: Blood Gas Allen Test Pos; Blood Gas Sample Site Radial, right; Blood Gas Sample Type Arterial; Oxygen Device ROOM AIR
[2020-09-15 11:34] LABS: ABG PCO2 32.9 mmHg (35-45); ABG PH Result 7.43 (7.35-7.45); Arterial Blood Gas Hematocrit 34.8 % (42-52); Base Excess ABG -1.7 mmol/L (-2.0-2.0)
[2020-09-15 11:35] LABS: PO2 ABG 35.4 mmHg (80.0-100.0)
[2020-09-15] MEDS: dextrose 5%-sod chloride 0.9% 1,000 ML 100 ML IV ×2 (11:35→20:42)
[2020-09-15 11:48] LABS: Glucose Point of Care 206 mg/dL (70-110)
[2020-09-15 12:42] LABS: Glucose Point of Care 144 mg/dL (70-110)
[2020-09-15 13:50] LABS: Glucose Point of Care 117 mg/dL (70-110)
[2020-09-15] MEDS: ondansetron 2 mg/ML SDV 2 mL 4 MG IVP ×2 (14:20→20:41)
[2020-09-15] MEDS: HYDROcodone-acetaminophen 10-325 mg Tablet 1 TAB PO ×2 (14:21→20:31)
[2020-09-15 14:56] LABS: Glucose Point of Care 93 mg/dL (70-110)
[2020-09-15 15:40] LABS: Anion Gap 11.9 (5-19); Blood Urea Nitrogen 25 mg/dL (8-23); Calcium 9.1 mg/dL (8.5-10.5); Carbon Dioxide 23 mmol/L (22-29); Chloride 98 mmol/L (98-107); Glomerular Filtration Rate 85.8 mL/min (90-130); Glucose 92 mg/dL (65-115); Osmolality Calculated 272 mOsm/kg (285-295); Potassium 3.9 mmol/L (3.5-5.1); Sodium 129 mmol/L (136-145)
--- NOTE | 2020-09-15 15:45 | PC.CHAP ---
Pastoral Care Encounter/Spiritual Assessment Type of Contact [] Declined physical therapy assistant visit [] Patient/Family/Request visit [] Outpatient visit [] Follow-up visit [] Physician referral [] Code/Alert [] Routine visit [] Staff referral [] Actively dying [] Patient sleeping [] Family support [] [] Out of room [] Palliative care [] [] Receiving care in room [] Pre-surgical visit [] Trauma [] Long length of stay [] ICU visit [] Other: Relational/Emotional Strength [] Patient feels connected with others/family/visitors/staff [] Distress [] Loneliness/isolation [] Abandonment Spirituality of Patient [] Person of Cecilia [] Attends Faith of their Cecilia [] Believes in Prayer [] Reads Bible or Scientology materials [] There are Spiritual issues to be addressed Maintenance Custodian Interventions [] Prayer [] Active listening [] Non-anxious presence [] Spiritual/emotional support [] Crisis/trauma care [] Spiritual counseling [] Bereavement support [] Provided bereavement packet [] Provided Bible/devotional materials [] Provided toy/stuffed animal, coloring book to patient or family member [] Provided Communion [] Anointing/[place] [] Salvation [] Completed spiritual assessment [] Other: Impact on Illness or Injury [] Angry [] Fearful [] Anxious [] Often cries [] Exhaustion [] Unable to work [] Unable to attend cheondoism [] Unable to walk/stand [] Unable to read [] Unable to drive [] Unable to eat/drink [] Unable to sleep [] Unable to be with family [] Patient intubated [] Other: Summary seems to know everyone but still un responsive Time spent with patient 20 min
[2020-09-15 16:10] LABS: Glucose Point of Care 88 mg/dL (70-110)
[2020-09-15] MEDS: lidocaine 1% 5 ML in potassium chloride premix 100 ML 25 ML IV (16:16)
--- NOTE | 2020-09-15 16:34 | P.PN_ITS ---
Subjective Subjective: Interval history: S anion gap still remaining open this morning, continuing insulin infusion, fingerstick down to 250, switch over to D5 normal saline with ongoing insulin infusion, awaiting closure of gap. Stop bicarb infusion, repeated blood gas with pH of 7.43 now. Awaiting results of VQ scan. Medications: Reviewed: Yes Vitals/I&O/Wt Last Vital Signs Temp 96.0 F L 09/15/20 05:28 Pulse 89 09/15/20 16:00 Resp 14 09/15/20 16:00 BP 120/61 09/15/20 16:00 Pulse Ox 94 09/15/20 16:00 09/15/20 09/15/20 09/15/20 06:59 14:59 22:59 Intake Total 2025.367 / 2025.367 1301.413 / 1301.413 5.917 / 1307.330 Output Total 300 / 300 Balance 2025.367 / 2025.367 1001.413 / 1001.413 5.917 / 1007.330 Weight last 48 hrs Weight 71.214 kg Physical Exam Narrative: EXAM NARRATIVE: GEN: Awake, alert and oriented, no acute distress CVS: S1S2 N RS: CTA B/L Abd: Soft, nt/nd , bs+ ARCHIVIST ECONOMIC HISTORY: no focal neuro deficits Data : 09/15/20 01:57 09/15/20 15:10 A&P Assessment and plan (1) Diabetic keto-acidosis: Status: Acute Qualifiers: Diabetes mellitus complication detail: without coma Diabetes mellitus type: type 1 Qualified Code(s): E10.10 - Type 1 diabetes mellitus with ketoacidosis without coma (2) Chronic right-sided low back pain with bilateral sciatica: Status: Chronic Additional A&P Information DKA This seems secondary to dehydration probably due to diabetic gastroparesis, he missed multiple insulin doses as well in last 1 month Anion gap still open this morning, continue checking BMP every 4 hours, continue insulin infusion, fingerstick now at 250, switch fluids to D5 normal saline, added potassium 40. Once gap closes, will start overlap with subcutaneous insulin. Severe metabolic acidosis due to DKA pH now resolved, at 7.4, discontinue bicarbonate infusion Hyperkalemia with RAEGAN This is now resolved. Sinus tachycardia High D-dimer, currently saturating well on room air VQ scan negative for PE Continue prophylactic anticoagulation Bipolar disorder: Continue p.o. medications once DKA improved Full code N.p.o. DVT prophylaxis Lovenox 40 Resume home medications Attestations Medical Necessity Statement*: DKA still with increased anion gap, awaiting closure of gap, then transition to insulin. Coding Level of Care Code Acute Pill Maker for g Fwd Diagnoses Diabetic keto-acidosis E10.10 Diabetes mellitus complication detail: without coma Diabetes mellitus type: type 1 Chronic right-sided low back pain with bilateral sciatica M54.41; M54.42; G89.29
--- NOTE | 2020-09-15 16:55 | PC.RESP ---
Smoking Cessation information sent to patient.
[2020-09-15 17:00] LABS: Glucose Point of Care 86 mg/dL (70-110)
--- NOTE | 2020-09-15 17:32 | PC.NURSE ---
insulin gtt off, bridge with sliding scale per Dr. Lopez.
[2020-09-15 18:49] LABS: Glucose Point of Care 436 mg/dL (70-110)
[2020-09-15 19:01] LABS: Blood Urea Nitrogen 24 mg/dL (8-23); Calcium 9.1 mg/dL (8.5-10.5); Carbon Dioxide 24 mmol/L (22-29); Chloride 101 mmol/L (98-107); Glomerular Filtration Rate 85.8 mL/min (90-130); Glucose 66 mg/dL (65-115); Osmolality Calculated 274 mOsm/kg (285-295); Sodium 131 mmol/L (136-145)
[2020-09-15 19:26] LABS: Anion Gap 9.6 (5-19); Potassium 3.6 mmol/L (3.5-5.1)
[2020-09-15] MEDS: ropinirole 2 mg Tablet 4 MG PO (20:31)
[2020-09-15] MEDS: quetiapine 100 mg Tablet 50 MG PO (20:32)
--- NOTE | 2020-09-15 20:50 | PC.NURSE ---
Received bed side shift report from off going nurse. Pt' plan of care reviewed. Pt resting in bed. Respirations are even and unlabored. No s/sx of distress noted. Pt is alert and oriented and able to make his own decisions. Pt c/o lower back pain that is chronic in nature. Rates pain 01/20. Pt has prn pain medication for pain management. Pt also c/o of nausea with no vomiting. Pt stated he was unable to eat much of his dinner tonight. Pt denies any other pains or concerns at this time. Bed in lowest and locked position, call light and water within reach, x's 2 rails up. Will continue to monitor pt.
[2020-09-15] MEDS: quetiapine 300 mg Tablet PO (21:16)
[2020-09-15 21:59] LABS: Blood Urea Nitrogen 21 mg/dL (8-23); Calcium 8.8 mg/dL (8.5-10.5); Carbon Dioxide 21 mmol/L (22-29); Chloride 98 mmol/L (98-107); Glucose 218 mg/dL (65-115); Osmolality Calculated 278 mOsm/kg (285-295); Sodium 129 mmol/L (136-145)
[2020-09-15 22:02] LABS: Anion Gap 14.7 (5-19); Potassium 4.7 mmol/L (3.5-5.1)
[2020-09-16] VITALS (86 sets, daily range): BP systolic 95–151; BP diastolic 50–86; PULSE 71–117; RESP 9–19; TEMP 36.7–36.9; O2SAT 89–98
[2020-09-16] MEDS: sodium chloride 0.9% 1,000 ML 75 ML IV (03:47)
[2020-09-16 05:42] LABS: Basophils # 0.1 10^3/uL (0.0-0.1); Basophils % 0.7 %; Eosinophils # 0.1 10^3/uL (0.0-0.8); Eosinophils % 0.7 %; Hematocrit 34.5 % (42.0-52.0); Hemoglobin 11.3 g/dL (11.7-16.6); Lymphocytes # 2.2 10^3/uL (0.8-4.8); Lymphocytes % 28.3 %; Mean Corpuscular HGB Conc 32.8 g/dL (30.0-36.0); Mean Corpuscular Hemoglobin 29.4 pg (28.0-34.0); Mean Corpuscular Volume 89.6 fL (80-94); Monocytes # 0.8 10^3/uL (0.2-0.9); Monocytes % 10.6 %; Neutrophils # 4.55 10^3/uL (1.8-7.7); Neutrophils % 59.2 %; Nucleated Red Blood Cells % 0 %; Platelet Count 334 10^3/cmm (130-400); Red Blood Count 3.85 10^6/uL (4.1-5.3); Red Cell Distribution Width 13.2 % (12.1-15.1); White Blood Count 7.7 10^3/uL (4.0-10.0)
[2020-09-16 06:18] LABS: Alanine Aminotransferase 17 U/L (0-41); Albumin Level 2.9 g/dL (3.5-5.2); Alkaline Phosphatase 56 IU/L (40-130); Anion Gap 17.3 (5-19); Aspartate Amino Transferase 16 U/L (0-40); Blood Urea Nitrogen 18 mg/dL (8-23); Calcium 8.7 mg/dL (8.5-10.5); Carbon Dioxide 20 mmol/L (22-29); Chloride 97 mmol/L (98-107); Globulin 2.7 g/dL (1.3-4.6); Glucose 291 mg/dL (65-115); Osmolality Calculated 283 mOsm/kg (285-295); Potassium 4.3 mmol/L (3.5-5.1); Sodium 130 mmol/L (136-145); Total Bilirubin 0.2 mg/dL (0.15-1.2); Total Protein 5.6 g/dL (6.6-8.7)
[2020-09-16 06:30] LABS: Lactate (Lactic Acid level) 0.8 mmol/L (0.5-2.2)
[2020-09-16 09:10] LABS: Glucose Point of Care 263 mg/dL (70-110)
[2020-09-16 09:10] LABS: Glucose Point of Care 194 mg/dL (70-110)
[2020-09-16] MEDS: pantoprazole DR 40 mg Tablet PO (09:24)
[2020-09-16] MEDS: lamoTRIgine 100 mg Tablet 200 MG PO (09:24)
[2020-09-16] MEDS: ropinirole 1 mg Tablet PO (09:24)
[2020-09-16] MEDS: atorvastatin 40 mg Tablet 80 MG PO (09:24)
[2020-09-16] MEDS: aspirin 81 mg EC Tablet PO (09:24)
[2020-09-16] MEDS: enoxaparin 40 mg/0.4 mL Syringe SUBCUT (09:24)
--- NOTE | 2020-09-16 10:31 | PM.DCS ---
Discharge Providers Date of Admission: 09/15/20 04:02 Date of Discharge: September 16, 2020 Attending Provider at Admission: Hortensia Dee MD Attending Provider at Discharge: Suly Lopez MD Primary Care Provider: Ama Braun DO Diagnoses at Discharge Discharge Diagnosis (1) Diabetic keto-acidosis: Status: Acute Qualifiers: Diabetes mellitus complication detail: without coma Diabetes mellitus type: type 1 Qualified Code(s): E10.10 - Type 1 diabetes mellitus with ketoacidosis without coma (2) Chronic right-sided low back pain with bilateral sciatica: Status: Chronic Reason for Visit Reason for Visit: CP Hospital Course Hospital Course Aakash Kelley is a 60 year old male who presented today with chief complaint of worsening abdominal pain recurrent nausea and vomiting. Patient is a type I diabetic, he stating that because of his recurrent nausea and vomiting he has missed his insulin dosages in last 1 month, he started experiencing multiple bouts of emesis 3 to 4 weeks ago. Diagnosis in the ER revealed DKA, hypertension, severe metabolic acidosis. He received treatment per DKA protocol with insulin drip which was titrated off on 09/15 afternoon. 24 hr insulin requirements are at 80 units, recommended to continue 35 units am and 30 units of levemir in evening as previosuly prescribed with novolog sliding scale. CT abdomen and pelvis did not show any acute intracranial abnormalities. Diabetic gastroparesis is suspected, and gastric emptying study has been ordered as an outpatient at discharge. Past history of gastritis for which he underwent endoscopy in October 2019, currently on Protonix. For high D-dimer he underwent V/Q scan which showed low probability of PE. He is being discharged today after resolution of DKA, controlled fingersticks, overall stable. F/up arranged with endocrinology in one week. Meloxicam discontinued due to recent RAEGAN Physical Exam Narrative: EXAM NARRATIVE: GEN: Awake, alert and oriented, no acute distress CVS: S1S2 N RS: CTA B/L Abd: Soft, nt/nd , bs+ [facility] DIRECT[facility]: no focal neuro deficits Discharge Data Data Completed and Pending: Completed Studies During Hospitalization Category Date Time Status CT abdomen pelvis w con* [id number] Rout ine Cat Scan 09/15/20 04:37 Completed XR chest 1V hiram ble [id number] Stat Exams 09/15/20 01:54 Completed NM pul vent and p erfus* [id number] Routi ne Nuc Med 09/15/20 06:03 Completed Labs from last 24 hours 09/16/20 09/16/20 09/16/20 04:50 04:50 04:50 WBC 7.7 RBC 3.85 L Hgb 11.3 L Hct 34.5 L MCV 89.6 MCH 29.4 MCHC 32.8 RDW 13.2 Plt Count 334 MPV 9.0 Neut % (Auto) 59.2 Lymph % (Auto) 28.3 [place] % (Auto) 10.6 Eos % (Auto) 0.7 Baso % (Auto) 0.7 Neut # (Auto) 4.55 Lymph # (Auto) 2.2 [place] # (Auto) 0.8 Eos # (Auto) 0.1 Baso # (Auto) 0.1 Nucleated RBC % (a uto) 0 Nucleated RBCs # 0.0 Specimen Type Sample Site ABG pH ABG pCO2 ABG pO2 ABG HCO3 ABG Base Excess Jarvis Test Hematocrit O2 Delivery Device Student Development Specialist ID Sodium 130 L Potassium 4.3 Chloride 97 L Carbon Dioxide 20 L Anion Gap 17.3 BUN 18 Creatinine 1.0 GFR Calculation 76.0 L Glucose 291 H POC Glucose Calculated Osmolal ity 283 L Lactate 0.8 Calcium 8.7 Total Bilirubin 0.2 AST 16 ALT 17 Alkaline Phosphata se 56 Total Protein 5.6 L Albumin 2.9 L Globulin 2.7 09/16/20 09/15/20 09/15/20 02:51 21:37 20:38 WBC RBC Hgb Hct MCV MCH MCHC RDW Plt Count MPV Neut % (Auto) Lymph % (Auto) [place] % (Auto) Eos % (Auto) Baso % (Auto) Neut # (Auto) Lymph # (Auto) [place] # (Auto) Eos # (Auto) Baso # (Auto) Nucleated RBC % (a uto) Nucleated RBCs # Specimen Type Sample Site ABG pH ABG pCO2 ABG pO2 ABG HCO3 ABG Base Excess Jarvis Test Hematocrit O2 Delivery Device Student Development Specialist ID Sodium 129 L Potassium 4.7 Chloride 98 Carbon Dioxide 21 L Anion Gap 14.7 BUN 21 Creatinine 1.0 GFR Calculation 76.0 L Glucose 218 H POC Glucose 263 H 194 H Calculated Osmolal ity 278 L Lactate Calcium 8.8 Total Bilirubin AST ALT Alkaline Phosphata se Total Protein Albumin Globulin 04/05/21 04/05/21 04/05/21 17:30 16:58 16:07 WBC RBC Hgb Hct MCV MCH MCHC RDW Plt Count MPV Neut % (Auto) Lymph % (Auto) [place] % (Auto) Eos % (Auto) Baso % (Auto) Neut # (Auto) Lymph # (Auto) [place] # (Auto) Eos # (Auto) Baso # (Auto) Nucleated RBC % (a uto) Nucleated RBCs # Specimen Type Sample Site ABG pH ABG pCO2 ABG pO2 ABG HCO3 ABG Base Excess Jarvis Test Hematocrit O2 Delivery Device Student Development Specialist ID Sodium 131 L Potassium 3.6 Chloride 101 Carbon Dioxide 24 Anion Gap 9.6 BUN 24 H Creatinine 0.9 GFR Calculation 85.8 L Glucose 66 POC Glucose 86 88 Calculated Osmolal ity 274 L Lactate Calcium 9.1 Total Bilirubin AST ALT Alkaline Phosphata se Total Protein Albumin Globulin 09/15/20 09/15/20 09/15/20 15:10 14:53 13:59 WBC RBC Hgb Hct MCV MCH MCHC RDW Plt Count MPV Neut % (Auto) Lymph % (Auto) [place] % (Auto) Eos % (Auto) Baso % (Auto) Neut # (Auto) Lymph # (Auto) [place] # (Auto) Eos # (Auto) Baso # (Auto) Nucleated RBC % (a uto) Nucleated RBCs # Specimen Type Sample Site ABG pH ABG pCO2 ABG pO2 ABG HCO3 ABG Base Excess Jarvis Test Hematocrit O2 Delivery Device Student Development Specialist ID Sodium 129 L Cancelled Potassium 3.9 Cancelled Chloride 98 Cancelled Carbon Dioxide 23 Cancelled Anion Gap 11.9 Cancelled BUN 25 H Cancelled Creatinine 0.9 Cancelled GFR Calculation 85.8 L Cancelled Glucose 92 Cancelled POC Glucose 93 Calculated Osmolal ity 272 L Cancelled Lactate Calcium 9.1 Cancelled Total Bilirubin AST ALT Alkaline Phosphata se Total Protein Albumin Globulin 09/15/20 09/15/20 09/15/20 13:47 12:40 11:32 WBC RBC Hgb Hct MCV MCH MCHC RDW Plt Count MPV Neut % (Auto) Lymph % (Auto) [place] % (Auto) Eos % (Auto) Baso % (Auto) Neut # (Auto) Lymph # (Auto) [place] # (Auto) Eos # (Auto) Baso # (Auto) Nucleated RBC % (a uto) Nucleated RBCs # Specimen Type Sample Site ABG pH ABG pCO2 ABG pO2 ABG HCO3 ABG Base Excess Jarvis Test Hematocrit O2 Delivery Device Student Development Specialist ID Sodium Potassium Chloride Carbon Dioxide Anion Gap BUN Creatinine GFR Calculation Glucose POC Glucose 117 H 144 H 206 H Calculated Osmolal ity Lactate Calcium Total Bilirubin AST ALT Alkaline Phosphata se Total Protein Albumin Globulin 09/15/20 09/15/20 09/15/20 11:22 10:19 09:09 WBC RBC Hgb Hct MCV MCH MCHC RDW Plt Count MPV Neut % (Auto) Lymph % (Auto) [place] % (Auto) Eos % (Auto) Baso % (Auto) Neut # (Auto) Lymph # (Auto) [place] # (Auto) Eos # (Auto) Baso # (Auto) Nucleated RBC % (a uto) Nucleated RBCs # Specimen Type Arterial Sample Site Radial, right ABG pH 7.43 ABG pCO2 32.9 L ABG pO2 35.4 L* ABG HCO3 22.0 ABG Base Excess -1.7 Jarvis Test Pos Hematocrit 34.8 L O2 Delivery Device Room air Student Development Specialist ID Ccak Sodium Potassium Chloride Carbon Dioxide Anion Gap BUN Creatinine GFR Calculation Glucose POC Glucose 251 H 305 H Calculated Osmolal ity Lactate Calcium Total Bilirubin AST ALT Alkaline Phosphata se Total Protein Albumin Globulin 09/15/20 09/15/20 09/15/20 08:14 07:18 06:03 WBC RBC Hgb Hct MCV MCH MCHC RDW Plt Count MPV Neut % (Auto) Lymph % (Auto) [place] % (Auto) Eos % (Auto) Baso % (Auto) Neut # (Auto) Lymph # (Auto) [place] # (Auto) Eos # (Auto) Baso # (Auto) Nucleated RBC % (a uto) Nucleated RBCs # Specimen Type Sample Site ABG pH ABG pCO2 ABG pO2 ABG HCO3 ABG Base Excess Jarvis Test Hematocrit O2 Delivery Device Student Development Specialist ID Sodium Potassium Chloride Carbon Dioxide Anion Gap BUN Creatinine GFR Calculation Glucose POC Glucose 356 H 436 H 533 H* Calculated Osmolal ity Lactate Calcium Total Bilirubin AST ALT Alkaline Phosphata se Total Protein Albumin Globulin Vitals: Last Vital Signs Temp 98.4 F 09/16/20 09:00 Pulse 86 09/16/20 09:00 Resp 10 L 09/16/20 09:00 BP 135/75 09/16/20 09:00 Pulse Ox 95 09/16/20 09:00 Discharge Plan Discharge Patient Disposition: Home Condition: Stable Prescriptions: Continued lactulose [Constulose] 10 gram/15 mL solution 15 ml PO DAILY PRN (Reason: Constipation) RF: 0 (DME) lancets [Micro Thin Lancets] 33 gauge misc See Rx Instructions .ROUTE .MEDSUPPLY Qty: 100 RF: 0 hydrocodone-acetaminophen 10-325 mg tablet 1 - 2 tab PO Q4H PRN (Reason: Pain) RF: 0 aspirin 81 mg tablet,delayed release (DR/EC) 81 mg PO DAILY@0830 RF: 0 ondansetron HCl [Zofran] 4 mg tablet 4 mg PO Q8H PRN (Reason: nausea and vomiting) Qty: 20 RF: 0 (DME) blood sugar diagnostic [Accu-Chek Julia Plus test strp] Strip See Rx Instructions .ROUTE .MEDSUPPLY Qty: 200 RF: 4 metoclopramide HCl 10 mg tablet 10 mg PO Q6H PRN (Reason: nausea) Qty: 120 RF: 2 Levemir FlexTouch U-100 Insuln 100 unit/mL (3 mL) insulin pen See Rx Instructions SUBCUT DIRECTED 90 Days Qty: 45 RF: 0 alprazolam 1 mg tablet 0.5 mg PO BID Qty: 30 RF: 5 atorvastatin 80 mg tablet 80 mg PO DAILY@0830 RF: 0 lamotrigine [Lamictal] 200 mg tablet 200 mg PO DAILY@08 RF: 0 ropinirole 1 mg tablet 1 mg PO DAILY@829 RF: 0 quetiapine 300 mg tablet 300 mg PO DAILY@1999 RF: 0 amlodipine 5 mg tablet 5 mg PO DAILY@829 RF: 0 pantoprazole 40 mg tablet,delayed release (DR/EC) 40 mg PO DAILY@829 RF: 0 ropinirole 4 mg tablet 4 mg PO DAILY@1999 RF: 0 quetiapine [Seroquel] 50 mg tablet 50 mg PO BEDTIME@1999 RF: 0 fenofibrate nanocrystallized [Tricor] 145 mg tablet 145 mg PO DAILY@0830 RF: 0 Stool Softener 1 - 2 tab PO BID RF: 0 vitamin E 1,000 unit PO DAILY@0830 RF: 0 Humalog KwikPen Insulin 100 unit/mL insulin pen See Rx Instructions .ROUTE .COMPLEX Qty: 3 RF: 0 Discontinued meloxicam 15 mg tablet 7.5 mg PO DAILY@0830 RF: 0 Discharge Orders: Discharge Order (Routine); Ordered 09/16/20 Ordered By: Suly Lopez Other Ambulatory Orders: [place] [id number] (Routine) Timeframe: 1 Week Facility: [facility] - Location: Radiology Ordered By: Suly Lopez Referrals: Maldonado Bridges MD [Physician] - 1 week Discharge Diet: Diabetic Discharge Activity: Resume usual activity Discharge Attestations Time Spent in Discharge Care*: greater than 30 min Specific Discharge Activities: educating patient and educating and/or supporting family/caregiver Quality Metrics Clinical Quality Measures During this hospital stay, did patient experience: None Coding Level of Care Code Acute Chg FW DC note Diagnoses Diabetic keto-acidosis E10.10 Diabetes mellitus complication detail: without coma Diabetes mellitus type: type 1 Chronic right-sided low back pain with bilateral sciatica M54.41; M54.42; G89.29
[2020-09-16 11:56] LABS: Glucose Point of Care 122 mg/dL (70-110)
[2020-09-16 17:08] LABS: Glucose Point of Care 191 mg/dL (70-110)
== END 2020-09-16 12:54 | disposition home or self-care (01) | DRG 638 ==
LOC: ER 02:20 → ICU 04:21
PROVIDERS: Admitting Provider Internal Medicine; Emergency Provider Emergency Medicine; PCP Family Medicine; Visit Provider Student in an Organized Health Care Education/Training Program
DX: E10.10 Type 1 diabetes mellitus with ketoacidosis without coma (principal); E87.1 Hypo-osmolality and hyponatremia; N17.9 Acute kidney failure, unspecified; E86.0 Dehydration; N18.9 Chronic kidney disease, unspecified; I12.9 Hypertensive chronic kidney disease with stage 1 through stage 4 chronic kidney disease, or unspecified chronic kidney disease; E87.5 Hyperkalemia; F31.9 Bipolar disorder, unspecified; K59.09 Other constipation; G89.29 Other chronic pain; M54.42 Lumbago with sciatica, left side; M54.41 Lumbago with sciatica, right side; F17.210 Nicotine dependence, cigarettes, uncomplicated; F43.12 Post-traumatic stress disorder, chronic; E10.51 Type 1 diabetes mellitus with diabetic peripheral angiopathy without gangrene; E10.43 Type 1 diabetes mellitus with diabetic autonomic (poly)neuropathy; K31.84 Gastroparesis; Z79.82 Long term (current) use of aspirin
CPT/HCPCS: 36415; 36416; 36600; 71045; 74177; 78014; 80048; 80053; 82009; 82803; 82962; 83036; 83605; 83690; 83721; 83880; 84478; 84484; 85025; 85378; 85610; 85730; 93005; 96361; 96372; 96374; 96375; 99285; A9540; A9567; J1644; J1650; J1815; J2405; J3010; J3480; J7030; J7050; Q9967

== ENCOUNTER 2020-09-24 07:31 | Outpatient (CLI) | payer MEDICARE, SELFPAY ==
--- NOTE | 2020-09-24 07:42 | NM_ITS ---
WS: [id number] NUCLEAR MEDICINE GASTRIC EMPTYING EXAMINATION HISTORY: diabetic gastroparesis COMPARISON: None available. TECHNIQUE: The patient ingested a meal containing 1.0 mCi of Tc 99m sulfur colloid mixed with eggs. The patient was placed in supine position and imaging over the abdomen was performed for a total of 1 20 minutes. Computer acquisition with the region of interest placed over the stomach to evaluate jose mikel emptying half-time. At 90 minutes gastric emptying is near 32%. A 120 minutes emptying has increased to 56 %. NM/[place] [id number] IMPRESSION: Mild delay in early gastric emptying. Greater than 50% emptying near 120 minute s.
== END 2020-09-24 07:32 | disposition home or self-care (01) ==
LOC: RAD 07:33
PROVIDERS: PCP Family Medicine; Visit Provider Student in an Organized Health Care Education/Training Program
DX: E11.43 Type 2 diabetes mellitus with diabetic autonomic (poly)neuropathy (principal)
CPT/HCPCS: 78264; A9541

== ENCOUNTER → 2020-10-01 08:15 | Outpatient (BNVA) | payer MEDICARE, SELFPAY | PROVIDERS: PCP Family Medicine; Visit Provider Psychiatry & Neurology Psychiatry | DX: F31.89 Other bipolar disorder (principal); F43.12 Post-traumatic stress disorder, chronic; F17.219 Nicotine dependence, cigarettes, with unspecified nicotine-induced disorders; E78.5 Hyperlipidemia, unspecified | CPT/HCPCS: 99213 ==

== ENCOUNTER → 2020-10-07 11:49 | Outpatient (BNVA) | payer MEDICARE, SELFPAY | PROVIDERS: PCP Family Medicine; Visit Provider Family Medicine | DX: E10.65 Type 1 diabetes mellitus with hyperglycemia (principal); K04.7 Periapical abscess without sinus | CPT/HCPCS: 36416; 82962 ==

== ENCOUNTER → 2020-12-18 07:33 | Outpatient (BNVA) | payer MEDICARE, SELFPAY | PROVIDERS: PCP Family Medicine; Visit Provider Psychiatry & Neurology Psychiatry | DX: F31.89 Other bipolar disorder (principal); F43.12 Post-traumatic stress disorder, chronic; F17.219 Nicotine dependence, cigarettes, with unspecified nicotine-induced disorders; E78.5 Hyperlipidemia, unspecified | CPT/HCPCS: 99213 ==

== ENCOUNTER → 2021-01-08 13:34 | Outpatient (BNVA) | payer MEDICARE, SELFPAY | PROVIDERS: PCP Family Medicine; Visit Provider Family Medicine | DX: E10.65 Type 1 diabetes mellitus with hyperglycemia (principal) | CPT/HCPCS: 80053; 80061; 82043; 83036 ==

== ENCOUNTER → 2021-03-11 07:44 | Outpatient (BNVA) | payer MEDICARE, SELFPAY | PROVIDERS: PCP Family Medicine; Visit Provider Psychiatry & Neurology Psychiatry | DX: F31.89 Other bipolar disorder (principal); F43.12 Post-traumatic stress disorder, chronic; F17.219 Nicotine dependence, cigarettes, with unspecified nicotine-induced disorders; E78.5 Hyperlipidemia, unspecified; F12.90 Cannabis use, unspecified, uncomplicated | CPT/HCPCS: 99214 ==

== ENCOUNTER → 2021-06-10 07:40 | Outpatient (BNVA) | payer MEDICARE, SELFPAY | PROVIDERS: PCP Family Medicine; Visit Provider Psychiatry & Neurology Psychiatry | DX: F31.89 Other bipolar disorder (principal); F43.12 Post-traumatic stress disorder, chronic; F17.219 Nicotine dependence, cigarettes, with unspecified nicotine-induced disorders; E78.5 Hyperlipidemia, unspecified; F12.90 Cannabis use, unspecified, uncomplicated | CPT/HCPCS: 99213 ==

== ENCOUNTER → 2021-07-02 09:57 | Outpatient (BNVA) | payer MEDICARE, SELFPAY | PROVIDERS: PCP Family Medicine; Visit Provider Podiatrist Foot & Ankle Surgery | DX: E10.621 Type 1 diabetes mellitus with foot ulcer (principal); L97.521 Non-pressure chronic ulcer of other part of left foot limited to breakdown of skin; Z46.89 Encounter for fitting and adjustment of other specified devices; L97.522 Non-pressure chronic ulcer of other part of left foot with fat layer exposed; R35.1 Nocturia; E10.65 Type 1 diabetes mellitus with hyperglycemia | CPT/HCPCS: 73630; 80053; 83036; 84153; 85025; 87070; 87075; 87077; 87186; 87205; 97760; L4361 ==

== ENCOUNTER 2021-07-02 11:08 | Outpatient (CLI) | payer MEDICARE, SELFPAY | END 2021-07-02 11:09 | disposition home or self-care (01) | LOC: SPT 11:09 | PROVIDERS: PCP Family Medicine; Visit Provider Podiatrist Foot & Ankle Surgery | DX: Z46.89 Encounter for fitting and adjustment of other specified devices (principal); L97.522 Non-pressure chronic ulcer of other part of left foot with fat layer exposed | CPT/HCPCS: 80053; 83036; 84153; 85025; 87070; 87075; 87077; 87186; 87205; 97760; L4361 ==

== ENCOUNTER → 2021-07-08 13:41 | Outpatient (BNVA) | payer MEDICARE, SELFPAY | PROVIDERS: PCP Family Medicine; Visit Provider Internal Medicine | DX: F17.210 Nicotine dependence, cigarettes, uncomplicated (principal); Z79.4 Long term (current) use of insulin | CPT/HCPCS: 99214 ==

== ENCOUNTER → 2021-07-22 12:59 | Outpatient (BNVA) | payer MEDICARE, SELFPAY | PROVIDERS: PCP Family Medicine; Visit Provider Internal Medicine | DX: E10.65 Type 1 diabetes mellitus with hyperglycemia (principal); E78.5 Hyperlipidemia, unspecified; F17.210 Nicotine dependence, cigarettes, uncomplicated; Z79.4 Long term (current) use of insulin | CPT/HCPCS: 99214 ==

== ENCOUNTER → 2021-07-30 11:51 | Outpatient (BNVA) | payer MEDICARE, SELFPAY | PROVIDERS: PCP Family Medicine; Visit Provider Podiatrist Foot & Ankle Surgery | DX: L97.524 Non-pressure chronic ulcer of other part of left foot with necrosis of bone (principal) | CPT/HCPCS: 73630 ==

== ENCOUNTER 2021-08-04 14:14 | Outpatient (CLI) | payer MEDICARE, SELFPAY ==
--- NOTE | 2021-08-04 15:00 | USCV_ITS ---
Warren Aakash Age: 60 Gender: M : 1960 Exam Date: 08/04/2021 14:34 Ordering Phys: Naif Chavez DPM Technologist: Marck Burns [place] [facility] [place]ication: NON HEALING ULCERS ON LT FOOT RIGHT LEFT Brachial 146.00 mmHg Brachial 145.00 mmHg Pressure (mmHg) Waveform Pressure (mmHg) Waveform 147.00 Above Knee 145.00 148.00 Below Knee 116.00 122.00 SENIOR PATIENT ACCOUNT REPRESENTATIVE 81.00 133.00 DPA 52.00 0.91 Ankle/Brachial Index 0.55 93.00 Pre-Exercise Toe Pressure 65.00 Pre-Exercise Toe/Brachial Index 0.45 0.64 FINDINGS Slightly diminished resting ANTOLIN and TBI on the right side. Moderately diminished resting ANTOLIN and TBI on the left side. PVR waveforms showing loss of dicrotic notch CONCLUSIONS Features of moderate peripheral artery disease on the left side. Features of mild peripheral artery disease on the right side Dr Eris Campbell MD [facility] (Electronically Signed) Final Date: 05 August 2021 18:31 S
== END 2021-08-04 14:15 | disposition home or self-care (01) ==
LOC: RAD 14:18
PROVIDERS: PCP Family Medicine; Visit Provider Podiatrist Foot & Ankle Surgery
DX: R09.89 Other specified symptoms and signs involving the circulatory and respiratory systems (principal); L97.529 Non-pressure chronic ulcer of other part of left foot with unspecified severity
CPT/HCPCS: 93923

== ENCOUNTER → 2021-08-18 09:41 | Outpatient (BNVA) | payer MEDICARE, SELFPAY | PROVIDERS: PCP Family Medicine; Visit Provider Podiatrist Foot & Ankle Surgery | DX: L97.524 Non-pressure chronic ulcer of other part of left foot with necrosis of bone (principal) | CPT/HCPCS: 73630 ==

== ENCOUNTER → 2021-09-01 15:12 | Outpatient (BNVA) | payer MEDICARE, SELFPAY | PROVIDERS: PCP Family Medicine; Visit Provider Podiatrist Foot & Ankle Surgery | DX: L97.524 Non-pressure chronic ulcer of other part of left foot with necrosis of bone (principal) | CPT/HCPCS: 73630 ==

== ENCOUNTER → 2021-09-08 14:33 | Outpatient (BNVA) | payer MEDICARE, SELFPAY | PROVIDERS: PCP Family Medicine; Visit Provider Internal Medicine | DX: M79.606 Pain in leg, unspecified (principal); E10.65 Type 1 diabetes mellitus with hyperglycemia; I10 Essential (primary) hypertension | CPT/HCPCS: 99204 ==

== ENCOUNTER → 2021-09-09 07:34 | Outpatient (BNVA) | payer MEDICARE, SELFPAY | PROVIDERS: PCP Family Medicine; Visit Provider Psychiatry & Neurology Psychiatry | DX: F12.90 Cannabis use, unspecified, uncomplicated (principal); F43.12 Post-traumatic stress disorder, chronic; F31.89 Other bipolar disorder; F17.219 Nicotine dependence, cigarettes, with unspecified nicotine-induced disorders; E78.5 Hyperlipidemia, unspecified | CPT/HCPCS: 99214 ==

== ENCOUNTER → 2021-09-17 13:47 | Outpatient (BNVA) | payer MEDICARE, SELFPAY | PROVIDERS: PCP Family Medicine; Visit Provider Podiatrist Foot & Ankle Surgery | DX: E10.621 Type 1 diabetes mellitus with foot ulcer (principal); L97.524 Non-pressure chronic ulcer of other part of left foot with necrosis of bone; L97.522 Non-pressure chronic ulcer of other part of left foot with fat layer exposed; L60.1 Onycholysis; M20.41 Other hammer toe(s) (acquired), right foot; M20.42 Other hammer toe(s) (acquired), left foot; I73.9 Peripheral vascular disease, unspecified; F17.210 Nicotine dependence, cigarettes, uncomplicated | CPT/HCPCS: 11044 ==

== ENCOUNTER → 2021-10-22 15:08 | Outpatient (BNVA) | payer MEDICARE, SELFPAY | PROVIDERS: PCP Family Medicine; Visit Provider Podiatrist Foot & Ankle Surgery | DX: E11.621 Type 2 diabetes mellitus with foot ulcer (principal); L97.529 Non-pressure chronic ulcer of other part of left foot with unspecified severity; L97.521 Non-pressure chronic ulcer of other part of left foot limited to breakdown of skin; L97.524 Non-pressure chronic ulcer of other part of left foot with necrosis of bone; L97.522 Non-pressure chronic ulcer of other part of left foot with fat layer exposed; L60.1 Onycholysis; E11.21 Type 2 diabetes mellitus with diabetic nephropathy; M20.41 Other hammer toe(s) (acquired), right foot; M20.42 Other hammer toe(s) (acquired), left foot; I73.9 Peripheral vascular disease, unspecified; F17.210 Nicotine dependence, cigarettes, uncomplicated | CPT/HCPCS: 73630; 99214 ==

== ENCOUNTER 2021-11-05 12:40 | Observation (INO) | payer MEDICARE, SELFPAY ==
[2021-11-03 16:35] LABS: Basophils # 0.1 10^3/uL (0.0-0.1); Basophils % 1.4 %; Eosinophils # 0.1 10^3/uL (0.0-0.8); Eosinophils % 1.2 %; Hematocrit 49.8 % (42.0-52.0); Hemoglobin 16.8 g/dL (11.7-16.6); Lymphocytes # 2.6 10^3/uL (0.8-4.8); Lymphocytes % 31.1 %; Mean Corpuscular HGB Conc 33.7 g/dL (30.0-36.0); Mean Corpuscular Hemoglobin 29.6 pg (28.0-34.0); Mean Corpuscular Volume 87.8 fl (80-94); Mean Platelet Volume 10.2 fL (7.4-10.4); Monocytes # 0.7 10^3/uL (0.2-0.9); Monocytes % 8.4 %; Neutrophils # 4.81 10^3/uL (1.8-7.7); Neutrophils % 57.5 %; Nucleated Red Blood Cells % 0 %; Platelet Count 352 10^3/cmm (130-400); Red Blood Count 5.67 10^6/uL (4.1-5.3); Red Cell Distribution Width 12.6 % (12.1-15.1); White Blood Count 8.4 10^3/uL (4.0-10.0)
[2021-11-03 16:59] LABS: Prothrombin Time (Patient) 12.5 Seconds (12.0-15.1)
[2021-11-03 17:42] LABS: Blood Urea Nitrogen 23 mg/dL (8-23); Calcium 9.8 mg/dL (8.5-10.5); Carbon Dioxide 24 mmol/L (22-29); Chloride 96 mmol/L (98-107); Glomerular Filtration Rate 85.5 mL/min (90-130); Glucose 224 mg/dL (65-115); Osmolality Calculated 293 mOsm/kg (285-295); Sodium 136 mmol/L (136-145)
[2021-11-05] VITALS (48 sets, daily range): BP systolic 129–198; BP diastolic 63–102; PULSE 55–98; RESP 10–26; TEMP 36.8–37.2; O2SAT 91–96; BMI 27.1
--- NOTE | 2021-11-05 09:03 | XACV_ITS ---
Ht: 170 cm Wt: 78 kg BSA: 1.94 m2 Any Known Allergies: Other Gender: Male : 1960 Exam Type: Invasive Peripheral Vascular Procedure(s): Procedure Description: Peripheral Cath Diagnostic Procedure Procedure Description: Lower extremities' angiography Procedure Description: Peripheral vascular Intervention Procedure Description: PV Balloon Procedure Description: PV Atherectomy Exam Priority: Routine Abdominal Diagnostic Findings Distal abdominal aorta: Patent. Lower Extremity Diagnostic Findings INDICATION:61-year-old man with past medical history of diabetes, dyslipidemia, hypertension was referred by podiatry for ulcer on the left hallux. He is also having significant bilateral claudication symptoms. Patient ANTOLIN show reduced ANTOLIN and TBI on the left lower extremity with a ANTOLIN value of 0.55.Plan for peripheral angiogram with possible intervention. Left common iliac artery: Patent Left external iliac artery: Patent Left ostial SFA: Has severe stenosis. Mid to distal SFA is totally occluded with reconstitution of the distal vessel. Popliteal artery: Patent TP trunk: Patent Anterior tibial artery: Patent, diffuse disease Popliteal artery: has mid vessel occlusion, diffuse disease Posterior tibial artery: Patent, diffuse disease. Right lower extremity vessels: Right common iliac artery: Patent Right external iliac artery: Patent Right common femoral artery: Patent Right profunda artery: Patent Right SFA: Ostial vessel has severe stenosis. Mid vessel is totally occluded. Reconstitutes via collaterals in the distal segment. Right popliteal artery: Patent Below the knee patient has three-vessel runoff to the foot however has diffuse disease. Lower Extremity Interventional Findings Procedure detail: Using seeker support catheter and Glidewire we crossed totally occluded left SFA segment. Through the seeker catheter, we switched Glidewire to Viper wire. Orbital atherectomy was used to perform arthrectomy. We then dilated stenosis with a 5.0 x 200 mm balloon. In the proximal segment there was residual stenosis. We dilated that with 6.0 x 60 mm balloon. At this time final angiogram was performed that showed excellent expansion of the vessel and brisk flow. Wire and sheath were removed. Left Mid-longitudinal Superficial Femoral Artery: 70% stenosis treated with AB Lula 35 SKINNER PELTS Catheter [id number] and AB ARMADA 35 [id number] [id number]. Conclusions Totally occluded left SFA . S/p successful revascularization with orbital arthrectomy and balloon angioplasty. Occluded right SFA. We will proceed with staged revascularization. Left Mid-longitudinal Superficial Femoral Artery was treated with two Balloon. Recommendations Aggressive risk factor modification. Eliquis and aspirin. Outpatient cardiology follow up in 2-4 weeks. Hemodynamic Data Phase:Rest AO : 122.0 / 55.0 ( 82.0 ) @ 11:48:00 AM 104.0 / 63.0 ( 83.0 ) @ 11:52:00 AM 148.0 / 71.0 ( 100.0 ) @ 12:05:00 PM 146.0 / 59.0 ( 92.0 ) @ 12:27:00 PM Access Site Site: Right Femoral artery Sheath Size: 6 Fr Hemost... Method: Suture Hemost... Success: Successful Procedure Details Findings Pre-Procedure Time Out. Identified patient by full name and date of as verbalized by the patient/guarantor. Does the consent match the physician's order: Yes. Accurate & Complete Informed Consent: Yes. Inpatient/Outpatient History & Physical on Chart: Yes. If H&P is completed, is and addenduem needed: Yes; If yes, is the addendum complete: N/A. Visualize and Verify Site with Patient/Guarantor: N/A. Relevant Radiology Images available: Yes. Pre-op teaching completed and patient verbalized understanding. The risks, benefits, and alternatives of sedation and/or procedure were discussed by physician. The patient agrees to continue. Procedure started. Current diagnosis: PVD. Correct patient, site and procedure confirmed by cath team. PERRLA. Strong, equal hand lube man bilaterally. Lungs clear x 5 lobes. IV Site on Arrival: 20 gauge in the left anticubital. IV Fluids: 0.9% NaCl at KVO. 0 mL infused prior to collaborative teacher. Pre Procedural Pulses: right dorsalis pedis was 1+. Pre Procedural Pulses: left dorsalis pedis was Doppled. Pre Procedural Pulses: right posterior tibial was 1+. Pre Procedural Pulses: left posterior tibial was Absent. Oxygen started at 2liters/min via nasal canula. bilateral groins was prepped with chloroprep then draped in the usual sterile fashion. Physician notified. Baseline sample Acquired. HR: 73 BPM. Physician arrived. Physician scrubbed in. Immediate Pre-Procedure Time Out. Correct Patient: Yes; Correct Procedure: Yes; Correct Site: Yes; Correct Patient Position: Yes; Correct Supplies: Yes; Dried Flammable Prep: Yes; Blood Products Available: N/A;. Lidocaine 1% infiltrated to the right groin. Arterial access obtained with micropuncture set. A 5Fr UF catheter in over the glidewire. Glidewire out. Pigtail postioned above the bifurcation of the iliacs. Aortagram performed @ 10 mL/sec for a total of 30 mL. Glidewire in. UF Catheter removed over the glide wire. Sheath upsized to a 6 Fr. Left external iliac selected and arteriogram with runoff performed @ 10 mL/sec for a total of 30 mL. Seeker catheter inserted over the glidewire. Glidewire out. Support catheter positioned in the popliteal and a hand injection was performed to better visualize the distal vessels. Viper Glidewre in through the seeker support catheter to the left SFA. Side port of sheath attached to Normal Saline flush at KVO to maintain patency. Diamondback 360 1.5 Wayside atherectomy system in. Atherectomy of the left SFA performed. Atherectomy of the left SFA performed. Atherectomy of the left SFA performed. Atherectomy of the left SFA performed. Diamondback 360 1.5 Eri atherectomy system out. Seeker catheter inserted over the Viper wire. Viper wire out. Glidewire in. Inflation number : 1 A AB Lula 35 SKINNER PELTS Catheter [id number] was prepped and advanced across the Superficial Femoral, Left , then inflated to 8 JANKI for 1:34 seconds. Inflation number: 2 The AB Lula 35 SKINNER PELTS Catheter [id number] was reinflated across the Superficial Femoral, Left, to 8 JANKI for 1:33 seconds. Inflation number: 3 The AB Lula 35 SKINNER PELTS Catheter [id number] was reinflated across the Superficial Femoral, Left, to 8 JANKI for 1:34 seconds. Balloon out. Results checked. Inflation number : 4 A AB ARMADA 35 OTW [id number] was prepped and advanced across the Superficial Femoral, Left , then inflated to 8 JANKI for 1:33 seconds. Balloon out. Results checked. Alplaus wire out. Sheath upsized to a 6 Fr. Sheath injected in Right common femoral artery and runoff performed. Dr. Freeman scrubbed out. Sheath(s) sutured into position with 2-0 silk and sterile 4x4's and Op-site applied over the site. No oozing or signs and symptoms of hematoma noted. Arterial sheath flushed and connected to tranducer and pressure bag with heparinized saline. Post Procedure: Pulses reassessed and unchanged. PERRLA. Strong, equal hand lube man bilaterally. No VTE prophylaxis required. Post-op diagnosis: Atherectomy and ballooning of the left SFA. Complications: none. Medication's Wasted: Nitro = 49.6 mg. Total IV fluids: 73 mL. A Suture was successful obtaining hemostatsis at the Right Femoral artery insertion site. Estimated blood loss: 5mL-10mL. Responsiveness - Normal response to verbal stimuli; alert and oriented, PERRLA. Airway - Unaffected, no intervention required; spontaneous ventilation. Circulation: W/N/L, pulses unchanged. Nausea/Vomiting: No. Procedure completed. Patient transferred by bed to CPRU. Vital chart was stopped. Procedure Medications Start: 10:33 AM Stop: 10:33 AM Medication: Versed Amount: 1 mg Route: I.V. Start: 10:33 AM Stop: 10:33 AM Medication: Fentanyl Amount: 50 mcg Route: I.V. Start: 10:35 AM Stop: 10:35 AM Medication: Hydralazine Amount: 10 mg Route: I.V. Start: 10:36 AM Stop: 10:36 AM Medication: Versed Amount: 1 mg Route: I.V. Start: 10:38 AM Stop: 10:38 AM Medication: Fentanyl Amount: 25 mcg Route: I.V. Start: 10:39 AM Stop: 10:39 AM Medication: Hydralazine Amount: 10 mg Route: I.V. Start: 11:02 AM Stop: 11:02 AM Medication: Versed Amount: 1 mg Route: I.V. Start: 11:02 AM Stop: 11:02 AM Medication: Fentanyl Amount: 25 mcg Route: I.V. Start: 11:02 AM Stop: 11:02 AM Medication: Versed Amount: 1 mg Route: I.V. Start: 11:14 AM Stop: 11:14 AM Medication: Versed Amount: 1 mg Route: I.V. Start: 11:15 AM Stop: 11:15 AM Medication: Fentanyl Amount: 25 mcg Route: I.V. Start: 11:19 AM Stop: : AM Medication: Nitrogylcerin Amount: 400 mcg Route: I.A. Start: 11:27 AM Stop: : AM Medication: Fentanyl Amount: 25 mcg Route: I.V. Start: 11: AM Stop: : AM Medication: Heparin Amount: 5000 units Route: I.V. Start: 11:30 AM Stop: 11: AM Medication: Plavix Amount: 300 mg Route: P.O. I, the attending physician, have reviewed and verified all procedure medications. Yes, all medications given per verbal order History/Risk Factors Hypertension: Yes Dyslipidemia: Yes Peripheral Arterial Disease (PAD): No Obesity: No Renal Disease: No Tobacco Use: Current/Recent(w/in 1 year) Prior Interventions PCI: No CABG: No Valve Surgery: No Report Signatures Finalized by Christoph Freeman MD on 11/14/2021 07:05 PM
[2021-11-05] MEDS: diphenhydrAMINE 50 mg Capsule PO (09:30)
--- NOTE | 2021-11-05 10:32 | P.HP_ITS ---
Same Day Surgery H&P Indication for Procedure/HPI DATE OF PROCEDURE: November 05, 2021 CHIEF COMPLAINT/INDICATIONFOR SURGICAL PROCEDURE: Severe claudication/ arterial ulcer on left big toe PREOP DIAGNOSIS: Severe claudication/ arterial ulcer on left big toe PLANNED PROCEDURE: Operation Date: 11/05/21 10:00 Proposed Procedures p Peripheral Diagnostic(Bilateral) - Christoph Freeman M.D Possible intervention 61-year-old man with past medical history of diabetes, dyslipidemia, hypertension was referred by podiatry for ulcer on the left hallux. He is also having significant bilateral claudication symptoms. Patient ANTOLIN show reduced ANTOLIN and TBI on the left lower extremity with a ANTOLIN value of 0.55.Plan for peripheral angiogram with possible intervention Medications/Allergies* Home Medications Medication Instructions Recorded Confirmed Type aspirin 81 mg tablet,delayed 81 mg PO DAILY@0830 07/06/19 11/04/21 History release hydrocodone 10 mg-acetaminophen 1 - 2 tab PO Q4H PRN tab 07/06/19 11/04/21 History 325 mg tablet lactulose 10 gram/15 mL oral 15 ml PO DAILY PRN 07/06/19 11/04/21 History solution (Constulose) lancets 33 gauge (Micro Thin #100 each 07/06/19 10/22/21 History Lancets) Stool Softener 1 - 2 tab PO BID 09/10/20 11/04/21 History vitamin E 1,000 unit PO DAILY@0830 09/10/20 11/04/21 History meloxicam 15 mg tablet 15 mg PO DAILY 09/08/21 11/04/21 History Allergies/Adverse Reactions Allergy/AdvReac Type Severity Reaction Status Date / Time gabapentin Allergy Unknown Verified 10/22/21 15:33 varenicline [From Chantix] Allergy ADR-Confusi Verified 10/22/21 15:33 on Current Medications: Generic Name Dose Route Start Last Admin Trade Name Freq PRN Reason Stop Dose Admin Sodium Chloride 1,000 mls @ 50 mls/hr 11/05/21 09:04 11/05/21 09:54 Sodium Chloride 0.9% IV 11/06/21 05:03 Not Given .Q20H ONE Pertinent History/Comorbid Conditions* Medical History (Updated 09/09/21 @ 13:13 by Steven Soto DO) Benign essential HTN Chronic constipation Chronic nausea 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 Dyslipidemia GERD (gastroesophageal reflux disease) Hair loss Nicotine dependence, cigarettes, with unspecified nicotine-induced disorders Post-traumatic stress disorder, chronic Psychiatric care PVD (peripheral vascular disease) Uncontrolled type 1 diabetes mellitus with hyperglycemia Surgical History (Updated 11/13/19 @ 16:55 by Ricky Bai MD) H/O esophagogastroduodenoscopy (10/30/19) Gastric erosions History of facial surgery History of surgery on arm Status post colonoscopy with polypectomy (10/30/19) Ascending colon polyp, follow-up colonoscopy 5 years Family History (Updated 11/13/19 @ 14:18 by Saadia Chilel LPN) Diabetes Denies family history of Anesthesia complication Bleeding disorder Social History Smoking and tobacco status: current every day smoker cigarettes Packs smoked per day: 1.5 Alcohol intake: never Household members: spouse Marital status: Current occupational status: disabled History of recent travel: No Pertinent Exam Findings alert, oriented x 3, clear to auscultation bilaterally and regular rate & rhythm Dopplerable bilateral pulses, difficult to palpate Recommendations Surgery/Procedure today (Peripheral angiogram with possible percutaneous intervention) Coding Level of Care Code Acute Electronic Typesetting Machine Operator for Celio Garsia
[2021-11-05] MEDS: sodium chloride 0.9% 1,000 ML 100 ML IV ×2 (13:52→21:56)
[2021-11-05 14:54] LABS: Partial Thromboplastin Time 90.3 SECONDS (23.9-36.7)
[2021-11-05] MEDS: hyDRALAzine 20 mg/mL INJ 1 mL IVP (15:04)
[2021-11-05] MEDS: metoprolol tartrate 50 mg Tablet PO (15:04)
[2021-11-05] MEDS: ALPRAZolam 0.5 mg Tablet 0.25 MG PO ×2 (15:38→23:16)
[2021-11-05 16:45] LABS: Partial Thromboplastin Time 31.3 SECONDS (23.9-36.7)
[2021-11-05 16:54] LABS: Glucose Point of Care 438 mg/dL (70-110)
[2021-11-05] MEDS: hyDRALAzine 20 mg/mL INJ 1 mL 10 MG IVP (16:59)
[2021-11-05] MEDS: fentaNYL 50 mcg/mL INJ 2mL IVP (17:01)
--- NOTE | 2021-11-05 17:07 | PC.NURSE ---
Blood sugar check- pt's notified nurses that his blood sugar is 378 in his home blood sugar machine. notified dr that he is on accuchecks at home due to his diabetes. received order for high insulin sliding scale. re-check his blood sugar at 1645. it is 438. per our sliding scale pt needs to have 18 units. pt refused to get 18 units. he wants 10 units instead since his hr operations advisor advice him to not take insulin more than 10 units to prevent sudden drop of his blood sugar. notified Dr mike and received order to guve 10 units of insulin and check his blood sugar in an hour.
--- NOTE | 2021-11-05 17:20 | PC.NURSE ---
Sheath pulled Explained procedure to pt. Pre-medicated pt with Fentanyl pre sheath pull and Hydralazine for BP control. Right femoral artery palpated. Withdraw blood from arterial sheath for patency and expel blood clots if any on arterial. Direct Manual pressure held for 3-5 mins. 6 F sheath intact. No hematoma, swelling or bleeding noted. Pt denies any unusual pain or sensation. has tingling sensation bilat feet. pt tolerated the procedure well. Pulses on lower ext are diminished and unable to detect them with regular doppler. Dr. Freeman notified. Will keep monitoring his neurovasculary on his LE
--- NOTE | 2021-11-05 17:35 | PC.NURSE ---
David, RN, removed sheath and applied pressure per order and protocol. Unable to locate pulse in right leg using doppler. Dr Freeman notified. Ordered to wait 5 minutes after pressure has been held, then reassess. If unable to locate pulse, order right leg arterial doppler.
--- NOTE | 2021-11-05 18:00 | PC.NURSE ---
Physician notified unable to find or detect pulses on bilateral lower ext DP and PT. right foot is cool, left foot is warm. pt has tingling sensations on feet and lower back pain which is chronic. pt stated his pain level is at 2 per pain scale. Pt denies any pain on right leg or left leg. Dr. Freeman notified and received telephone order to check arterial duplex ultrasound on bilateral LE. Order put in as stat.
--- NOTE | 2021-11-05 18:17 | USR_ITS ---
PROCEDURE INFORMATION: Exam: US Duplex Lower Extremity Arteries Exam date and time: 11/05/2021 6:55 PM Age: 61 years old Clinical indication: Other: No pedal pulse; Prior surgery; Surgery date: Post-operative (0-2 days); Surgery type: Lt peripheral angiogram; Additional info: Post peripheral angiogram, no pulse detected on regular dopp TECHNIQUE: Imaging protocol: Real-time ultrasound scan of the arteries of the bilateral lower extremities with 2-D rivera scale, color Doppler flow and spectral waveform analysis. Images documented and saved. COMPARISON: CR XR foot LT min 3V* [id number] 10/22/2021 3:19 PM FINDINGS: Right common femoral artery: No occlusion. Monophasic waveform. Right superficial femoral artery: Absence of Doppler signal at mid portion. Right popliteal artery: No occlusion. Monophasic waveform. Right calf/foot arteries: Proximal portion of posterior tibial artery is patent. Absence of Doppler signal in more distal portions of right posterior tibial artery. There is absence of color Doppler signal in right dorsalis pedis with equivocal minimal/very slow monophasic spectral Doppler signal. Left common femoral artery: No occlusion. Monophasic waveform. Left superficial femoral artery: No occlusion. Monophasic waveform. Left popliteal artery: No occlusion . Monophasic waveform. Left calf/foot arteries: No occlusion. Monophasic waveforms. Dorsalis pedis artery is patent. Other findings: Ankle brachial indices of 0.8 on the left and 0.6 on the [place] US/[place] [id number] IMPRESSION: Occlusion at mid right superficial femoral artery and in the distal portions of right posterior tibial artery. Either severe disease or occlusion in the right dorsalis pedis artery. Patency from left common femoral artery to ankle/foot. Abnormally low ankle brachial indices.
[2021-11-05] MEDS: insulin lispro 100 unit/1 mL 10 UNIT SUBCUT (18:27)
[2021-11-05] MEDS: HYDROcodone-acetaminophen 10-325 mg Tablet 1 TAB PO ×2 (19:46→23:44)
--- NOTE | 2021-11-05 20:27 | PC.NURSE ---
Pt has tingling of both feet, which he states is chronic. Feet are pink, very cool to touch, but cap refill is less than 3 seconds. Sheath site has no palpable hematoma or bruising.
[2021-11-05] MEDS: quetiapine 100 mg Tablet 200 MG PO (21:07)
[2021-11-05] MEDS: insulin lispro 100 unit/1 mL SUBCUT (21:07)
[2021-11-05] MEDS: quetiapine 25 mg Tablet 50 MG PO (21:07)
--- NOTE | 2021-11-05 21:31 | PC.NURSE ---
Dr. Freeman at bedside, new medication orders received. Pt educated regarding Eliquis.
[2021-11-05] MEDS: apixaban 5 mg Tablet 2.5 MG PO (21:42)
[2021-11-05] MEDS: ropinirole 2 mg Tablet 4 MG PO (21:56)
--- NOTE | 2021-11-05 22:54 | PC.NURSE ---
Pt has tenderness of the left upper quadrant to light palpation
--- NOTE | 2021-11-05 23:19 | PC.NURSE ---
At 2310, this nurse entered pt's room. Pt angry and using profanity because he can't get up out of bed. I explained that I was told in report that his flat time would be up at 2320. He states that this information is wrong, again using profanity. I explained risks of ending flat time early. Pt and spouse verbalize understanding. Pt's bed placed in semi-mahmood's position. Pt and his understand that pt is to call for assistance before rising. Pt is to hold pressure to groin site if he laughs, coughs, sneezes, or bends at the waist.
[2021-11-06] VITALS (19 sets, daily range): BP systolic 120–183; BP diastolic 50–82; PULSE 50–56; RESP 11–19; TEMP 37.1–37.4; O2SAT 91–98
--- NOTE | 2021-11-06 00:57 | PC.NURSE ---
Pt ambulated to restroom and back. Groin site asymptomatic before and after ambulation. No hematoma present. Pt still has his normal tingling in his feet. Sensation present in bilateral lower extremities.
--- NOTE | 2021-11-06 02:31 | PC.NURSE ---
Groin site dressing dry and intact. No hematoma appreciated.
[2021-11-06 02:33] LABS: Basophils # 0.1 10^3/uL (0.0-0.1); Basophils % 0.8 %; Eosinophils % 0.4 %; Hematocrit 39.9 % (42.0-52.0); Hemoglobin 13.7 g/dL (11.7-16.6); Lymphocytes # 3.3 10^3/uL (0.8-4.8); Lymphocytes % 31.6 %; Mean Corpuscular HGB Conc 34.3 g/dL (30.0-36.0); Mean Corpuscular Hemoglobin 29.7 pg (28.0-34.0); Mean Corpuscular Volume 86.4 fl (80-94); Monocytes # 1.4 10^3/uL (0.2-0.9); Monocytes % 13.6 %; Neutrophils # 5.64 10^3/uL (1.8-7.7); Neutrophils % 53.4 %; Nucleated Red Blood Cells % 0 %; Platelet Count 271 10^3/cmm (130-400); Red Blood Count 4.62 10^6/uL (4.1-5.3); Red Cell Distribution Width 12.9 % (12.1-15.1); White Blood Count 10.6 10^3/uL (4.0-10.0)
[2021-11-06 02:51] LABS: Anion Gap 14.7 (5-19); Blood Urea Nitrogen 29 mg/dL (8-23); Carbon Dioxide 22 mmol/L (22-29); Chloride 97 mmol/L (98-107); Glomerular Filtration Rate 67.8 mL/min (90-130); Glucose 205 mg/dL (65-115); Osmolality Calculated 282 mOsm/kg (285-295); Potassium 3.7 mmol/L (3.5-5.1); Sodium 130 mmol/L (136-145)
[2021-11-06] MEDS: HYDROcodone-acetaminophen 10-325 mg Tablet 1 TAB PO ×2 (03:44→08:39)
--- NOTE | 2021-11-06 03:54 | PC.NURSE ---
Right groin site dressing dry and intact. No hematoma appreciated.
--- NOTE | 2021-11-06 04:06 | PC.NURSE ---
Room temperature decreased.
--- NOTE | 2021-11-06 06:02 | PC.NURSE ---
Groin site dressing dry and intact. No hematoma appreciated.
[2021-11-06 06:15] LABS: Glucose Point of Care 252 mg/dL (70-110)
--- NOTE | 2021-11-06 06:19 | PC.NURSE ---
Blood pressure cuff readjusted. Pt had been up to restroom.
[2021-11-06] MEDS: hyDRALAzine 20 mg/mL INJ 1 mL 10 MG IVP (06:31)
[2021-11-06 07:10] LABS: Glucose Point of Care 315 mg/dL (70-110)
[2021-11-06] MEDS: ropinirole 1 mg Tablet PO (07:25)
[2021-11-06] MEDS: pantoprazole DR 40 mg Tablet PO (07:25)
[2021-11-06] MEDS: ALPRAZolam 0.5 mg Tablet 0.25 MG PO (07:25)
[2021-11-06] MEDS: aspirin 81 mg EC Tablet PO (07:26)
[2021-11-06] MEDS: insulin lispro 100 unit/1 mL SUBCUT (07:26)
[2021-11-06] MEDS: sodium chloride 0.9% 1,000 ML 100 ML IV (07:26)
[2021-11-06] MEDS: atorvastatin 40 mg Tablet 80 MG PO (07:26)
[2021-11-06] MEDS: apixaban 5 mg Tablet 2.5 MG PO (08:20)
[2021-11-06] MEDS: sertraline 100 mg Tablet PO (08:20)
[2021-11-06] MEDS: lamoTRIgine 100 mg Tablet 200 MG PO (08:20)
[2021-11-06] MEDS: amlodipine 10 mg Tablet PO (08:34)
[2021-11-06] MEDS: metoprolol tartrate 50 mg Tablet 100 MG PO (08:35)
[2021-11-06] MEDS: ondansetron 4 MG Tablet PO (08:37)
--- NOTE | 2021-11-06 09:51 | P.SS_ITS ---
Short Stay Summary Providers Date of Admit/Discharge: 11/05/21 Attending Provider: Christoph Freeman M.D Primary Care Provider: Ama Braun DO Chief Complaint: 36113 [id number] vascular disease, unspecifie HPI History of Present Illness 61-year-old man with past medical history of diabetes, dyslipidemia, hypertension was referred by podiatry for ulcer on the left hallux. He is also having significant bilateral claudication symptoms. Patient ANTOLIN show reduced ANTOLIN and TBI on the left lower extremity with a ANTOLIN value of 0.55.Plan for peripheral angiogram with possible intervention Review of Systems General: Reports: 10 or more systems reviewed and unremarkable except in HPI and below Const: Denies: fever(s) or chills Card: Denies: chest pain or palpitations Resp: Denies: productive cough GI: Denies: abdominal pain, nausea or vomiting : Denies: flank pain Musc: Denies: extremity pain or extremity swelling Skin/Breast: Reports: changes in skin color, nail changes and change in hair; Denies: erythema or sores Neuro: Reports: numbness in extremities, weakness in extremities and sensory changes Psych: Denies: suicidal ideation Mikie/Lymph: Denies: easy bruising Home Meds/Allergies Home Medications and Allergies Home Medications Medication Instructions Recorded Confirmed Type aspirin 81 mg tablet,delayed 81 mg PO DAILY@0830 07/06/19 11/06/21 History release hydrocodone 10 mg-acetaminophen 1 - 2 tab PO Q4H PRN tab 07/06/19 11/06/21 History 325 mg tablet lactulose 10 gram/15 mL oral 15 ml PO DAILY PRN 07/06/19 11/06/21 History solution (Constulose) lancets 33 gauge (Micro Thin #100 each 07/06/19 11/06/21 History Lancets) meloxicam 15 mg tablet 15 mg PO DAILY 09/08/21 11/06/21 History docusate sodium 50 mg capsule 50 - 100 mg PO BID 11/06/21 11/06/21 History (Stool Softener) ondansetron HCl 4 mg tablet 4 mg PO Q8H PRN 11/06/21 11/06/21 History Allergies Allergy/AdvReac Type Severity Reaction Status Date / Time gabapentin Allergy Unknown Verified 11/06/21 08:41 varenicline [From Chantix] Allergy ADR-Confusi Verified 11/06/21 08:41 on PFSH Acute PFSH: Medical History Benign essential HTN Chronic constipation Chronic nausea 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 Dyslipidemia GERD (gastroesophageal reflux disease) Hair loss Nicotine dependence, cigarettes, with unspecified nicotine-induced disorders Post-traumatic stress disorder, chronic Psychiatric care PVD (peripheral vascular disease) Uncontrolled type 1 diabetes mellitus with hyperglycemia Surgical History H/O esophagogastroduodenoscopy (10/30/19) Gastric erosions History of facial surgery History of surgery on arm Status post colonoscopy with polypectomy (10/30/19) Ascending colon polyp, follow-up colonoscopy 5 years Family History Other Diabetes Denies family history of Anesthesia complication Bleeding disorder Social History Smoking and tobacco status: current every day smoker cigarettes Packs smoked per day: 1.5 Alcohol intake: never Household members: spouse Marital status: Current occupational status: disabled History of recent travel: No Vitals/I&O/Wt Last Vital Signs Temp 99.3 F 11/06/21 03:45 Pulse 52 L 11/06/21 06:30 Resp 15 11/06/21 06:30 BP 183/75 11/06/21 06:30 Pulse Ox 94 11/06/21 06:30 11/05/21 11/06/21 11/06/21 22:59 06:59 14:59 Intake Total 1446.667 / 1446.667 950 / 950 Output Total 900 / 900 300 / 1200 Balance 546.667 / 546.667 -300 / 246.667 950 / 950 Weight last 48 hrs Weight 173 lb Physical Exam Narrative: GENERAL: Patient is alert, awake and oriented x3. [] NECK: No jugular vein distension. [] HEENT: No cyanosis. No icterus. No pallor. [] HEART: Regular S1 and S2. No murmur, rub or gallop. [] LUNGS: Clear to auscultate bilaterally. [] ABDOMEN: Soft, nontender and nondistended. Positive bowel sounds. No guarding, rebound or tenderness. [] CENTRAL NERVOUS SYSTEM: Grossly nonfocal. [] EXTREMITIES: Lower extremities with no edema. Pulses are palpable in the left lower extremity post procedure Hospital Course Hospital Course 61-year-old man with past medical history of diabetes, dyslipidemia, hypertension was referred by podiatry for ulcer on the left hallux. He is also having significant bilateral claudication symptoms. Patient ANTOLIN show reduced ANTOLIN and TBI on the left lower extremity with a ANTOLIN value of 0.55.Plan for peripheral angiogram with possible intervention Patient underwent peripheral angiogram that showed totally occluded left SFA that underwent successful revascularization with orbital arthrectomy and balloon angioplasty. Right lower extremity also has severe PAD with occluded SFA. Posterior sheath pulled in the right common femoral artery, there was some concern of cold right foot. However patient was not symptomatic. We still confirmed flow to right foot with a Doppler ultrasound. Patient will need staged revascularization of right lower extremity as well. Patient has been started on Eliquis and aspirin. 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 lamotrigine [Lamictal] 200 mg tablet 200 mg PO DAILY Qty: 30 5RF sertraline 100 mg tablet 100 mg PO DAILY Qty: 30 5RF lactulose [Constulose] 10 gram/15 mL solution 15 ml PO DAILY PRN (Reason: Constipation) 0RF (DME) lancets [Micro Thin Lancets] 33 gauge misc See Rx Instructions .ROUTE .MEDSUPPLY Qty: 100 0RF Rx Instructions: As directed up to 5 times daily hydrocodone-acetaminophen 10-325 mg tablet 1 - 2 tab PO Q4H PRN (Reason: Pain) 0RF aspirin 81 mg tablet,delayed release (DR/EC) 81 mg PO DAILY@0830 0RF quetiapine 200 mg tablet 200 mg PO .qhs Qty: 30 2RF Rx Instructions: Take with 50mg tablet for total dose of 250mg. quetiapine 50 mg tablet 50 mg PO .qhs Qty: 30 2RF Rx Instructions: Take with 200mg tablet for total dose of 250mg. meloxicam 15 mg tablet 15 mg PO DAILY 0RF metoclopramide HCl 10 mg tablet 10 mg PO Q6H PRN (Reason: nausea) Qty: 120 2RF (DME) Dexcom G6 Transmitter Device See Rx Instructions .Route Qty: 1 3RF Rx Instructions: As directed Levemir FlexTouch U-100 Insuln 100 unit/mL (3 mL) insulin pen See Rx Instructions .ROUTE .COMPLEX Qty: 60 0RF Dose Instruction: INJECT 35 UNITS SUBCUTANEOUSLY IN THE MORNING AND 30 UNITS IN THE EVENING Rx Instructions: INJECT 35 UNITS SUBCUTANEOUSLY IN THE MORNING AND 30 UNITS IN THE EVENING Humalog KwikPen Insulin 100 unit/mL insulin pen See Rx Instructions .ROUTE .COMPLEX Qty: 15 0RF Dose Instruction: USE PER SLIDING SCALE SUBCUTANEOUSLY THREE TIMES DAILY Rx Instructions: USE PER SLIDING SCALE SUBCUTANEOUSLY THREE TIMES DAILY ropinirole 1 mg tablet 1 mg PO DAILY@0830 Qty: 90 0RF atorvastatin 80 mg tablet 80 mg PO DAILY@0830 Qty: 90 0RF ropinirole 4 mg tablet See Rx Instructions .ROUTE .COMPLEX Qty: 90 0RF Dose Instruction: TAKE 1 TABLET BY MOUTH DAILY AT 8 PM Rx Instructions: TAKE 1 TABLET BY MOUTH DAILY AT 8 PM (DME) Accu-Chek Julia Plus test strp Strip See Rx Instructions .ROUTE .MEDSUPPLY Qty: 200 4RF Rx Instructions: four times daily fenofibrate nanocrystallized [Tricor] 145 mg tablet 145 mg PO DAILY@0830 90 Days Qty: 90 0RF (DME) Dexcom G6 Auto Body Detailer Misc See Rx Instructions .ROUTE .COMPLEX Qty: 1 0RF Dose Instruction: USE TO CHECK BLOOD SUGAR FOUR TIMES DAILY Rx Instructions: USE TO CHECK BLOOD SUGAR FOUR TIMES DAILY pantoprazole 40 mg tablet,delayed release (DR/EC) 40 mg PO DAILY@0830 Qty: 90 1RF ondansetron HCl 4 mg Tablet 4 mg PO Q8H PRN (Reason: Nausea) 0RF Stool Softener 50 mg Capsule 50 - 100 mg PO BID 0RF Discharge Orders: Discharge Order (Routine); Ordered 11/06/21 Ordered By: Christoph Freeman Referrals: Christoph Freemna M.D [Physician] - 1 month Vane Stein FNP [Nurse Practitioner] - Discharge Diet: Diabetic Discharge Activity: Increase activity as tolerated Patient Instructions: Peripheral Vascular Angioplasty (DC), Opioid Safety Activity Restrictions/Additional Instructions: Please do not lift more than 5 pounds of weight for the next 5 days Attestations Medical Necessity Statement*: Care not expected to cross 2 midnights. Time Spent in Patient Care*: greater than 30 min Quality Metrics Clinical Quality Measures: [ No reported AMI, CVA or VTE this stay ] Coding Level of Care Code Acute Human Factors Ergonomist for Celio Garsia
--- NOTE | 2021-11-06 10:07 | PC.CHAP ---
Pastoral Care Encounter/Spiritual Assessment Type of Contact [] Declined breakfast host visit [] Patient/Family/Request visit [] Outpatient visit [] Follow-up visit [] Physician referral [] Code/Alert [x] Routine visit [] Staff referral [] Actively dying [x] Patient sleeping [] Family support [] [] Out of room [] Palliative care [] [] Receiving care in room [] Pre-surgical visit [] Trauma [] Long length of stay [x] ICU visit [] Other: Relational/Emotional Strength [] Patient feels connected with others/family/visitors/staff [] Distress [] Loneliness/isolation [] Abandonment Spirituality of Patient [] Person of Cecilia [] Attends Jainism of their Cecilia [] Believes in Prayer [] Reads Bible or Confucianist materials [] There are Spiritual issues to be addressed Doll Maker Interventions [x] Prayer [] Active listening [] Non-anxious presence [] Spiritual/emotional support [] Crisis/trauma care [] Spiritual counseling [] Bereavement support [] Provided bereavement packet [] Provided Bible/devotional materials [] Provided toy/stuffed animal, coloring book to patient or family member [] Provided Communion [] Anointing/Joiner [] Salvation [x] Completed spiritual assessment [] Other: Impact on Illness or Injury [] Angry [] Fearful [] Anxious [] Often cries [] Exhaustion [] Unable to work [] Unable to attend yarsani [] Unable to walk/stand [] Unable to read [] Unable to drive [] Unable to eat/drink [] Unable to sleep [] Unable to be with family [] Patient intubated [] Other: Summary Time spent with patient
--- NOTE | 2021-11-06 11:26 | PC.NURSE ---
Discharge education provided. Questions answered. Follow up appointments verified. Pateint left with family [phone].
== END 2021-11-06 11:26 | disposition home or self-care (01) ==
LOC: ICU 13:01
PROVIDERS: Admitting Provider Internal Medicine; PCP Family Medicine; Visit Provider Internal Medicine
DX: I70.92 Chronic total occlusion of artery of the extremities (principal); I10 Essential (primary) hypertension; E78.5 Hyperlipidemia, unspecified; Z79.82 Long term (current) use of aspirin; F17.210 Nicotine dependence, cigarettes, uncomplicated; E11.621 Type 2 diabetes mellitus with foot ulcer
CPT/HCPCS: 36415; 36416; 37224; 37225; 75625; 75716; 80048; 82962; 85025; 85610; 85730; 93925; 96360; 96361; 96372; 99152; 99153; C1724; C1725; C1769; C1887; C1894; G0378; J0360; J1644; J1815; J2250; J3010; J3490; J7030; Q0162; Q0163; Q9967

== ENCOUNTER → 2021-11-27 11:42 | Outpatient (BNVA) | payer MEDICARE, SELFPAY | PROVIDERS: PCP Family Medicine; Visit Provider Podiatrist Foot & Ankle Surgery | DX: E11.21 Type 2 diabetes mellitus with diabetic nephropathy (principal); M20.41 Other hammer toe(s) (acquired), right foot; M20.42 Other hammer toe(s) (acquired), left foot; I73.9 Peripheral vascular disease, unspecified | CPT/HCPCS: 99213 ==

== ENCOUNTER → 2021-12-31 09:08 | Outpatient (BNVA) | payer MEDICARE, SELFPAY | PROVIDERS: PCP Family Medicine; Visit Provider Family Medicine | DX: E10.65 Type 1 diabetes mellitus with hyperglycemia (principal); I10 Essential (primary) hypertension; E78.5 Hyperlipidemia, unspecified; R35.1 Nocturia; R11.2 Nausea with vomiting, unspecified; F17.219 Nicotine dependence, cigarettes, with unspecified nicotine-induced disorders | CPT/HCPCS: 85025 ==

== ENCOUNTER → 2022-01-01 14:45 | Outpatient (BNVA) | payer MEDICARE, SELFPAY | PROVIDERS: PCP Family Medicine; Visit Provider Family Medicine | DX: R35.1 Nocturia (principal); E78.5 Hyperlipidemia, unspecified; E10.65 Type 1 diabetes mellitus with hyperglycemia; I10 Essential (primary) hypertension | CPT/HCPCS: 80053; 80061; 83036; 83721; 84153; 85025 ==

== ENCOUNTER → 2022-01-08 09:28 | Outpatient (BNVA) | payer MEDICARE, SELFPAY | PROVIDERS: PCP Family Medicine; Visit Provider Internal Medicine | DX: I73.9 Peripheral vascular disease, unspecified (principal); F17.210 Nicotine dependence, cigarettes, uncomplicated; E10.65 Type 1 diabetes mellitus with hyperglycemia; Z79.4 Long term (current) use of insulin; I10 Essential (primary) hypertension | CPT/HCPCS: 99214 ==

== ENCOUNTER → 2022-01-21 08:41 | Outpatient (BNVA) | payer MEDICARE, SELFPAY | PROVIDERS: PCP Family Medicine; Visit Provider Internal Medicine | DX: E10.65 Type 1 diabetes mellitus with hyperglycemia (principal); E10.649 Type 1 diabetes mellitus with hypoglycemia without coma; T38.3X5A Adverse effect of insulin and oral hypoglycemic [antidiabetic] drugs, initial encounter; E78.5 Hyperlipidemia, unspecified; F17.210 Nicotine dependence, cigarettes, uncomplicated; Z79.4 Long term (current) use of insulin | CPT/HCPCS: 99214 ==

== ENCOUNTER → 2022-05-11 13:06 | Outpatient (BNVA) | payer MEDICARE, SELFPAY | PROVIDERS: PCP Family Medicine; Visit Provider Internal Medicine | DX: E10.65 Type 1 diabetes mellitus with hyperglycemia (principal); E10.10 Type 1 diabetes mellitus with ketoacidosis without coma; E10.649 Type 1 diabetes mellitus with hypoglycemia without coma; E16.0 Drug-induced hypoglycemia without coma; T38.3X5A Adverse effect of insulin and oral hypoglycemic [antidiabetic] drugs, initial encounter; E78.5 Hyperlipidemia, unspecified; F17.210 Nicotine dependence, cigarettes, uncomplicated; Z79.4 Long term (current) use of insulin | CPT/HCPCS: 99214 ==

== ENCOUNTER → 2022-07-26 09:44 | Outpatient (BNVA) | payer MEDICARE, SELFPAY | PROVIDERS: PCP Family Medicine; Visit Provider Family Medicine | DX: E10.65 Type 1 diabetes mellitus with hyperglycemia (principal); E78.5 Hyperlipidemia, unspecified; G25.81 Restless legs syndrome; K21.9 Gastro-esophageal reflux disease without esophagitis; I10 Essential (primary) hypertension | CPT/HCPCS: 80053; 80061; 83036; 83721 ==

== ENCOUNTER → 2023-01-17 08:28 | Outpatient (BNVA) | payer MEDICARE, SELFPAY | PROVIDERS: PCP Family Medicine; Visit Provider Internal Medicine | DX: G25.81 Restless legs syndrome (principal); E10.65 Type 1 diabetes mellitus with hyperglycemia; K21.9 Gastro-esophageal reflux disease without esophagitis; E78.5 Hyperlipidemia, unspecified; F17.219 Nicotine dependence, cigarettes, with unspecified nicotine-induced disorders | CPT/HCPCS: 80053; 80061; 82043; 83036 ==

== ENCOUNTER → 2023-01-24 13:45 | Outpatient (BNVA) | payer MEDICARE, SELFPAY | PROVIDERS: PCP Family Medicine; Visit Provider Internal Medicine | DX: E10.65 Type 1 diabetes mellitus with hyperglycemia (principal); E78.5 Hyperlipidemia, unspecified; E16.0 Drug-induced hypoglycemia without coma; T38.3X5A Adverse effect of insulin and oral hypoglycemic [antidiabetic] drugs, initial encounter; E10.649 Type 1 diabetes mellitus with hypoglycemia without coma; X58.XXXA Exposure to other specified factors, initial encounter; Z79.4 Long term (current) use of insulin | CPT/HCPCS: 99214 ==

== ENCOUNTER 2023-02-28 11:13 | Outpatient (CLI) | payer MEDICARE, SELFPAY ==
--- NOTE | 2023-02-28 11:15 | CT_ITS ---
WS: [id number] LDCT LUNG CANCER SCREENING TECHNIQUE: Noncontrast CT of the chest with coronal and sagittal reformatted images. CLINICAL INFORMATION: screening COMPARISON: None. DLP: 55.22 DIvol: 1.[address] scans at [facility] use at least one of these dose optimization techniques: automat ed exposure control; mA and/or kV adjustment per patient size (includes targeted exams where dose is matched to clinical indication); or iterative reconstruction. FINDINGS: No suspicious pulmonary parenchymal opacities. Aortic calcification. Coronary calcification. No media stinal or hilar lymphadenopathy. No axillary lymphadenopathy. Calcified mediastinal lymph nodes. A few calcified granulomas. Splenic granulomas. Adrenal glands are normal. Chronic appearing anterior wedging in the midthoracic spine. Chronic RIGHT rib fractures wit h callus formation. IMPRESSION: CT/CT lung screening [id number] LUNG-RADS: 2-Benign Appearance or Behavior FOLLOW UP: 12 Month: Continue annual screening with LDCT
== END 2023-02-28 11:14 | disposition home or self-care (01) ==
PROVIDERS: PCP Family Medicine; Visit Provider Family Medicine
DX: F17.210 Nicotine dependence, cigarettes, uncomplicated (principal); Z12.2 Encounter for screening for malignant neoplasm of respiratory organs
CPT/HCPCS: 71271

== ENCOUNTER → 2023-05-20 08:08 | Outpatient (BNVA) | payer MEDICARE, SELFPAY | PROVIDERS: PCP Family Medicine; Visit Provider Internal Medicine | DX: E10.10 Type 1 diabetes mellitus with ketoacidosis without coma (principal); E10.649 Type 1 diabetes mellitus with hypoglycemia without coma; E78.5 Hyperlipidemia, unspecified; E16.0 Drug-induced hypoglycemia without coma; T38.3X5A Adverse effect of insulin and oral hypoglycemic [antidiabetic] drugs, initial encounter; X58.XXXA Exposure to other specified factors, initial encounter; Z79.4 Long term (current) use of insulin | CPT/HCPCS: 99214 ==

== ENCOUNTER → 2023-07-19 08:21 | Outpatient (BNVA) | payer MEDICARE, SELFPAY ==
[2023-06-08 13:57] VITALS: BP 195/77; BMI 25.6
== END ==
PROVIDERS: PCP Family Medicine; Visit Provider Family Medicine
DX: I10 Essential (primary) hypertension (principal); G25.81 Restless legs syndrome; E10.65 Type 1 diabetes mellitus with hyperglycemia; R07.89 Other chest pain; E78.5 Hyperlipidemia, unspecified; F17.219 Nicotine dependence, cigarettes, with unspecified nicotine-induced disorders
CPT/HCPCS: 93005

== ENCOUNTER 2023-08-18 11:59 | Outpatient (CLI) | payer MEDICARE, SELFPAY ==
[2023-06-08 13:57] VITALS: BP 195/77; BMI 25.6
[2023-08-18 12:42] LABS: Estmated Average Glucose 226; Hemoglobin A1C 9.5 % (4.0-6.0)
[2023-08-18 12:48] LABS: Creatinine Urine, Random 51 mg/dL (39-259); Microalbum Creatinine Ratio Ur 137 mg/dL (0-20); Microalbumin Random Urine 7 ug/dL (0-20)
[2023-08-18 12:50] LABS: Alanine Aminotransferase 13 U/L (0-41); Albumin Level 4.1 g/dL (3.5-5.2); Alkaline Phosphatase 72 U/L (40-130); Blood Urea Nitrogen 34 mg/dL (8-23); Calcium 9.4 mg/dL (8.5-10.5); Carbon Dioxide 26 mmol/L (22-29); Chloride 95 mmol/L (98-107); Chol HDL Ratio 5.08 mg/dL (1.0-5.00); Cholesterol 183 mg/dL (0-200); Globulin 3.6 g/dL (1.3-4.6); Glomerular Filtration Rate 61.1 mL/min (90-130); Glucose 352 mg/dL (65-115); HDL Cholesterol 36 mg/dL (60-100); LDL Cholesterol Calculated 97 mg/dL (50-129); LDL HDL Ratio 2.69 RATIO (0.00-3.22); Osmolality Calculated 296 mOsm/kg (285-295); Sodium 132 mmol/L (136-145); Total Bilirubin 0.2 mg/dL (0.15-1.2); Total Protein 7.7 g/dL (6.6-8.7); Triglycerides 248 mg/dL (0-150)
[2023-08-18 12:55] LABS: Anion Gap 15.5 (5-19); Aspartate Amino Transferase 16 U/L (0-40); Potassium 4.5 mmol/L (3.5-5.1)
== END 2023-08-18 12:00 | disposition home or self-care (01) ==
LOC: LAB 12:01
PROVIDERS: PCP Family Medicine; Visit Provider Internal Medicine
DX: E10.65 Type 1 diabetes mellitus with hyperglycemia (principal); E10.10 Type 1 diabetes mellitus with ketoacidosis without coma; E78.5 Hyperlipidemia, unspecified
CPT/HCPCS: 36415; 80053; 80061; 82044; 83036

== ENCOUNTER → 2023-08-26 09:35 | Outpatient (BNVA) | payer MEDICARE, SELFPAY ==
[2023-08-23 14:40] VITALS: BP 126/74; BMI 27.1
== END ==
PROVIDERS: PCP Family Medicine; Visit Provider Internal Medicine
DX: E10.10 Type 1 diabetes mellitus with ketoacidosis without coma (principal); E10.649 Type 1 diabetes mellitus with hypoglycemia without coma; E78.5 Hyperlipidemia, unspecified; E16.0 Drug-induced hypoglycemia without coma; T38.3X5A Adverse effect of insulin and oral hypoglycemic [antidiabetic] drugs, initial encounter; X58.XXXA Exposure to other specified factors, initial encounter; Z79.4 Long term (current) use of insulin
CPT/HCPCS: 99214

== ENCOUNTER → 2023-11-25 08:53 | Outpatient (BNVA) | payer MEDICARE, SELFPAY ==
[2023-08-23 14:40] VITALS: BP 126/74; BMI 27.1
== END ==
PROVIDERS: PCP Family Medicine; Visit Provider Internal Medicine
DX: E10.65 Type 1 diabetes mellitus with hyperglycemia (principal); E78.5 Hyperlipidemia, unspecified; E16.0 Drug-induced hypoglycemia without coma; T38.3X5A Adverse effect of insulin and oral hypoglycemic [antidiabetic] drugs, initial encounter; E10.649 Type 1 diabetes mellitus with hypoglycemia without coma; X58.XXXA Exposure to other specified factors, initial encounter; Z79.4 Long term (current) use of insulin
CPT/HCPCS: 99214

== ENCOUNTER → 2024-06-15 09:32 | Outpatient (BNVA) | payer MEDICARE, MEDICAID, SELFPAY ==
[2023-08-23 14:40] VITALS: BP 126/74; BMI 27.1
== END ==
PROVIDERS: PCP Family Medicine; Visit Provider Family Medicine
DX: E10.65 Type 1 diabetes mellitus with hyperglycemia (principal); E78.5 Hyperlipidemia, unspecified
CPT/HCPCS: 80053; 80061; 83036; 85025

== ENCOUNTER → 2024-08-08 10:12 | Outpatient (BNVA) | payer MEDICARE, MEDICAID, SELFPAY ==
[2024-06-18 11:05] VITALS: BP 152/68; BMI 27.4
== END ==
PROVIDERS: PCP Family Medicine; Visit Provider Internal Medicine
DX: E10.65 Type 1 diabetes mellitus with hyperglycemia (principal); E78.5 Hyperlipidemia, unspecified; E16.0 Drug-induced hypoglycemia without coma; T38.3X5A Adverse effect of insulin and oral hypoglycemic [antidiabetic] drugs, initial encounter; K31.84 Gastroparesis
CPT/HCPCS: 99214

== ENCOUNTER 2024-09-24 13:11 | Outpatient (CLI) | payer MEDICARE, MEDICAID, SELFPAY ==
[2024-06-18 11:05] VITALS: BP 152/68; BMI 27.4
--- NOTE | 2024-09-24 13:17 | XRR_ITS ---
PROCEDURE INFORMATION: Exam: XR Lumbosacral Spine Exam date and time: 09/24/2024 1:21 PM Age: 64 years old Clinical indication: Pain and injury or trauma; Blunt trauma (contusions or hematomas); Injury details: Low back pain xyears, fall x1 week TECHNIQUE: Imaging protocol: Radiologic exam of the lumbosacral spine. Views: 2 or 3 views. COMPARISON: CR XR lumbar spine f/e only [id number] 11/11/2017 2:26 PM FINDINGS: Bones/joints: Moderate disc space narrowing and spur L3-L4. Anatomic alignment. The pedicles are intact. Soft tissues: Unremarkable. XR/XR lumbar spine 2-3V* [id number] IMPRESSION: Focal degenerative disc disease.
== END 2024-09-24 13:12 | disposition home or self-care (01) ==
LOC: RAD 13:12
PROVIDERS: PCP Family Medicine; Visit Provider Registered Nurse Neonatal Intensive Care
DX: M51.369 Other intervertebral disc degeneration, lumbar region without mention of lumbar back pain or lower extremity pain (principal); M46.06 Spinal enthesopathy, lumbar region; W19.XXXA Unspecified fall, initial encounter
CPT/HCPCS: 72100

== ENCOUNTER → 2024-10-31 10:09 | Outpatient (BNVA) | payer MEDICARE, MEDICAID, SELFPAY ==
[2024-06-18 11:05] VITALS: BP 152/68; BMI 27.4
== END ==
PROVIDERS: PCP Family Medicine; Visit Provider Internal Medicine
DX: E10.65 Type 1 diabetes mellitus with hyperglycemia (principal); E78.5 Hyperlipidemia, unspecified; E16.0 Drug-induced hypoglycemia without coma
CPT/HCPCS: 99214

== ENCOUNTER → 2025-02-01 15:27 | Outpatient (BNVA) | payer MEDICARE, SELFPAY ==
[2024-06-18 11:05] VITALS: BP 152/68; BMI 27.4
== END ==
PROVIDERS: PCP Family Medicine; Visit Provider Family Medicine
DX: E10.65 Type 1 diabetes mellitus with hyperglycemia (principal)
CPT/HCPCS: 80053; 80061; 83036; 84439; 84443; 85025

== ENCOUNTER → 2025-02-25 13:16 | Outpatient (BNVA) | payer MEDICARE, SELFPAY ==
[2025-02-25 13:58] VITALS: BP 152/68; BMI 27.4
== END ==
PROVIDERS: PCP Family Medicine; Referring Provider Family Medicine; Visit Provider Nurse Practitioner Family
DX: M54.42 Lumbago with sciatica, left side (principal); M54.41 Lumbago with sciatica, right side; G89.29 Other chronic pain
CPT/HCPCS: 99214

== ENCOUNTER → 2025-03-07 08:26 | Outpatient (BNVA) | payer MEDICARE, SELFPAY ==
[2025-03-01 15:22] VITALS: BP 130/78; BMI 25.5
== END ==
PROVIDERS: PCP Family Medicine; Visit Provider Nurse Practitioner Family
DX: M79.18 Myalgia, other site (principal); M54.42 Lumbago with sciatica, left side; M54.41 Lumbago with sciatica, right side; G89.29 Other chronic pain
CPT/HCPCS: 20553; 99214; J1010; J3490

== ENCOUNTER → 2025-04-09 09:21 | Outpatient (BNVA) | payer MEDICARE, SELFPAY ==
[2025-03-01 15:22] VITALS: BP 130/78; BMI 25.5
== END ==
PROVIDERS: PCP Family Medicine; Visit Provider Internal Medicine Endocrinology, Diabetes & Metabolism
DX: E10.65 Type 1 diabetes mellitus with hyperglycemia (principal); E78.5 Hyperlipidemia, unspecified; E16.0 Drug-induced hypoglycemia without coma; T38.3X5A Adverse effect of insulin and oral hypoglycemic [antidiabetic] drugs, initial encounter; X58.XXXA Exposure to other specified factors, initial encounter; Z79.4 Long term (current) use of insulin
CPT/HCPCS: 99214

== ENCOUNTER → 2025-04-18 07:50 | Outpatient (BNVA) | payer MEDICARE, SELFPAY ==
[2025-03-01 15:22] VITALS: BP 130/78; BMI 25.5
== END ==
PROVIDERS: PCP Family Medicine; Visit Provider Nurse Practitioner Family
DX: M54.42 Lumbago with sciatica, left side (principal); M54.41 Lumbago with sciatica, right side; G89.29 Other chronic pain
CPT/HCPCS: 99214

== ENCOUNTER → 2025-05-03 15:32 | Outpatient (BNVA) | payer MEDICARE, SELFPAY ==
[2025-03-01 15:22] VITALS: BP 130/78; BMI 25.5
== END ==
PROVIDERS: PCP Family Medicine; Visit Provider Family Medicine
DX: E10.65 Type 1 diabetes mellitus with hyperglycemia (principal)
CPT/HCPCS: 80048; 83036

== ENCOUNTER → 2025-05-20 10:17 | Outpatient (BNVA) | payer MEDICARE, SELFPAY ==
[2025-03-01 15:22] VITALS: BP 130/78; BMI 25.5
== END ==
PROVIDERS: PCP Family Medicine; Visit Provider Nurse Practitioner Family
DX: M54.42 Lumbago with sciatica, left side (principal); M54.41 Lumbago with sciatica, right side; G89.29 Other chronic pain
CPT/HCPCS: 99214